=== PATIENT | female | born 1945 | race Caucasian/White ===

== ENCOUNTER 2021-01-11 15:21 | Inpatient (IN) | payer MEDICARE, SELFPAY ==
[2021-01-11] VITALS (13 sets, daily range): BP systolic 107–127; BP diastolic 76–89; PULSE 50–101; RESP 14–26; TEMP 36–36.2; O2SAT 93–97; BMI 22.6
--- NOTE | ~2021-01-11 | US_ITS ---
EXAMINATION: US paracentesis abd w/image DATE: 01/14/2021 10:58 INDICATION: Ascites. TECHNIQUE: The procedure and its risks and benefits were discussed with the patient. Potential risks discussed included bleeding and infection. The skin was prepped and draped in sterile fashion. 1% lid ocaine was used for local anesthesia. Under ultrasound guidance, a 5 Fr catheter with trochar was adv anced into the ascites in the right lower quadrant. Fluid was aspirated into vacuum bottles. The cath eter was removed, and a dressing was applied. There were no immediate complications. FINDINGS: Ultrasound images demonstrate ascites and the catheter within the fluid. IMPRESSION: 1. Successful ultrasound-guided paracentesis yielding 850 mL of yellowish fluid. Reviewed, dictated and finalized at location A. IMPRESSION: 1. Successful ultrasound-guided paracentesis yielding 850 mL of yellowish flui d.
--- NOTE | ~2021-01-11 | CT_ITS ---
EXAMINATION: CT abdomen pelvis wo con DATE: 01/12/2021 09:18 INDICATION: Abdominal pain and ascites TECHNIQUE: Computed tomography (CT) of the abdomen and pelvis was performed without intravenous contr ast. Automated exposure control and iterative reconstruction technique were employed. The dose-length product was 321.06 mGy-cm. COMPARISON: 12/14/2015. FINDINGS: Mild dependent atelectasis in the bilateral lower lobes. Heart size is normal. Atherosclerotic ocasio ry artery calcific location. Fusiform ascending thoracic aortic aneurysm measuring up to 4.6 cm in ma ximal diameter. No pericardial or pleural effusion. Postoperative change of prior sleeve gastrectomy with suture line along the greater curvature of the stomach. Small sliding-type hiatal hernia. Fluid potentially due to reflux in the patulous distal esophagus. Cholecystectomy clips at the gallbladder fossa. Nodular cirrhotic liver. Spleen, pancreas, bilateral adrenal glands and kidneys are normal. Moderate amount of ascites throughout the abdomen and pelvis. No bowel obstruction. Moderate sigmoid diverticulosis without adjacent inflammatory change to suggest diverticulitis. The appendix is not visualized. Bladder is normal. The uterus is not identified and has likely been surgically resected. No pathologically enlarged abdominal or pelvic lymphadenopathy. Mild thoracolumbar dextroscoliosis with severe spondylosis. 4 mm anterolisthesis L5 on S1. IMPRESSION: 1. Cirrhosis with moderate amount of ascites. 2. 4.6 cm ascending thoracic aortic aneurysm. 3. Small sliding-type hiatal hernia with changes likely partial gastrectomy and fluid potentially rel ated to reflux into the patulous distal esophagus. 4. Sigmoid diverticulosis. Reviewed, dictated and finalized at location A. IMPRESSION: 1. Cirrhosis with moderate amount of ascites. 2. 4.6 cm ascending thoracic aortic aneurysm. 3. Small sliding-type hiatal hernia with changes likely partial gastrectomy and fluid potentially related to reflux into the patulous distal esophagus. 4. Sigmoid diverticulosis.
--- NOTE | ~2021-01-11 | XR_ITS ---
EXAMINATION: XR chest 1V INDICATION: Weakness and shortness of breath TECHNIQUE: PA view of the chest is obtained. COMPARISON: 11/17/2018 FINDINGS: The lungs are free of acute opacities. There is no pleural effusion or pneumothorax. The he art size is normal. The thoracic aorta is ectatic. Surgical clips in the right upper quadrant are lik matilde from prior cholecystectomy. IMPRESSION: 1. No acute cardiopulmonary abnormality. Reviewed, dictated and finalized at location B.
--- NOTE | 2021-01-11 15:53 | ECG_ITS ---
Measurements Intervals [place] Rate: 90 P: 13 ND: 140 QRS: -38 QRSD: 88 T: -2 QT: 359 QTc: 440 Interpretive Statements SINUS RHYTHM LEFT AXIS DEVIATION POOR R WAVE PROGRESSION, ANTERIOR LEADS BORDERLINE T WAVE ABNORMALITY- ANT/INF LEADS BASELINE ARTIFACT- I, III, AVR, AVL, AVF BORDERLINE ECG Electronically Signed On 01-11-2021 16:13:25 CDT by Twan Sparks D.O.
[2021-01-11 16:20] LABS: Basophils Absolute Auto 0.1 K/mm3 (0.0-0.1); Eosinophils Percent Auto 0.2 % (0-4.4); Immature Granulocyte Absolute 0.03 K/mm3 (0.00-0.031); Immature Granulocyte Percent A 0.5 % (0-0.5); Lymphocytes Absolute Auto 0.68 K/mm3 (0.9-3.2); Lymphocytes Percent Auto 11.6 % (18.3-44.2); Mean Corpuscular HGB Conc 32.6 g/dl (32-36); Mean Corpuscular Hemoglobin 33.3 pg (26-34); Mean Corpuscular Volume 102.4 fl (80-100); Mean Platelet Volume 10.5 fl (7.4-10.4); Monocytes Absolute Auto 0.4 K/mm3 (0.1-0.6); Monocytes Percent Auto 7.4 % (2.6-8.5); Neutrophils Absolute Auto 4.6 K/mm3 (1.3-6.7); Neutrophils Percent Auto 79.3 % (45.5-73.1); Platelet Count Result 239 k/mm3 (150-375); Red Cell Distribution Width 14.2 % (11.5-14.5); White Blood Count 5.9 K/mm3 (4.5-10.0)
[2021-01-11 16:27] LABS: Ammonia < 9 umol/L (9-30)
[2021-01-11 16:35] LABS: Alanine Aminotransferase 30 U/L (4-35); Albumin Level 3.7 g/dL (3.5-5.1); Alkaline Phosphatase 312 U/L (38-126); Anion Gap 10 mmol/L (8-16); Aspartate Amino Transferase 86 U/L (14-36); Bilirubin,Total 2.6 mg/dL (0.2-1.3); Blood Urea Nitrogen 7 mg/dL (7-17); Calcium 8.9 mg/dL (8.4-10.2); Carbon Dioxide 32 mmol/L (22-30); Chloride 92 mmol/L (98-107); Estimated CRCL calculation 39 ml/min; Estimated Glomerular Filt Rate > 60; Glucose 107 mg/dL (65-110); Lipase 174 U/L (23-300); Potassium 2.8 mmol/L (3.4-5.0); Sodium 134 mmol/L (137-145)
[2021-01-11 18:18] LABS: Add Urine Microscopic? YES; Appearance Urine Clear (Clear); Bilirubin Urine Negative (Negative); Blood Urine Negative (Negative); Color Urine Amber (Yellow); Glucose Urine UA Negative (Negative); Ketones Urine Negative (Negative); Leukocyte Esterase Ur 2+ LEU/UL (Negative); Mucus Urine Rare /lpf; Nitrate Urine Negative (Negative); Protein Urine Negative (Negative); RBC Urine 0-2 /hpf (0-2); Specific Grav Ur 1.011 (1.001-1.035); WBC Urine 0-3 /hpf
--- NOTE | 2021-01-11 18:28 | ED.WEAKNESS ---
HPI - Weakness General Chief complaint: Weakness Stated complaint: liver failure Time Seen by Provider: 01/11/21 18:00 History of Present Illness HPI Narrative: Patient presents with generalized weakness. Reports a history of end-stage liver failure. Reports difficult control ascites and approximately 2 weeks ago was started on Lasix to help with edema. She reports over that time. She has had increasing weakness and has lost approximately 14 pounds. She was concerned so she wanted to come in for evaluation. Reports generalized weakness reports loss of appetite denies vomiting denies diarrhea denies urinary symptoms she denies fevers. Patient reports chronic chest pain shortness of breath but is not noted any appreciable change in her baseline symptoms Related Data Home Medications Medication Instructions Recorded Confirmed Xifaxan 01/11/21 alclometasone applic TOPICAL 01/11/21 buprenorphine 01/11/21 buspirone mg 01/11/21 cyanocobalamin (vitamin B-12) 01/11/21 dapsone 01/11/21 dexamethasone 01/11/21 dorzolamide (PF) drp 01/11/21 duloxetine mg PO 01/11/21 ferrous sulfate [FeroSul] mg 01/11/21 fluticasone propionate 01/11/21 furosemide 01/11/21 ipratropium bromide 01/11/21 ipratropium bromide [Atrovent HFA] INHALATION 01/11/21 lactulose 01/11/21 lorazepam 01/11/21 montelukast mg 01/11/21 ondansetron 01/11/21 pantoprazole PO 01/11/21 01/11/21 prochlorperazine maleate 01/11/21 spironolactone 01/11/21 tenofovir alafenamide 01/11/21 thiamine HCl (vitamin B1) 01/11/21 tramadol mg 01/11/21 trazodone 01/11/21 Allergies Allergy/AdvReac Type Severity Reaction Status Date / Time adhesive Allergy Unknown Ulcers Verified 01/11/21 19:55 latex Allergy Unknown Ulcers Verified 01/11/21 19:55 Sulfa (Sulfonamide Allergy Unknown Rash Verified 01/11/21 19:55 Antibiotics) azathioprine AdvReac Other Verified 01/11/21 19:55 Review of Systems Review of Systems: CONSTITUTIONAL: Denies fever, chills, or sweats. EYES: Denies visual changes, redness, or discharge. ENT: Denies rhinorrhea, congestion, sore throat, or otalgia. CARDIOVASCULAR: Denies acute change in chest pain, palpitations, or edema. RESPIRATORY: Denies cough or acute change in dyspnea. GASTROINTESTINAL: Denies abdominal pain, vomiting, or diarrhea. GENITOURINARY: Denies dysuria or hematuria. SKIN: Denies rash or itching. MUSCULOSKELETAL: Denies back pain, joint pain, or myalgia. NEUROLOGIC: Denies headache, numbness, dizziness, or weakness. PSYCHIATRIC: Denies anxiety or depression. All systems reviewed & are unremarkable except as noted in HPI and below PMFSH Family History Family History Mother Family history of cardiovascular disease, Onset Age: 72 Social History Social History Smoking status: Never smoker Alcohol intake: never Gender identity (if verbalized by the patient): Female Exam Narrative: GENERAL: Well-appearing, well-nourished, and in no acute distress. HEAD: Normocephalic, atraumatic. EYES: PERRLA and EOMI. ENT: Nares clear, no rhinorrhea or epistaxis. Mucous membranes moist. NECK: Supple. No masses. No JVD CHEST: Clear to auscultation. No respiratory distress. No wheezes rales or rhonchi HEART: Regular rate and rhythm. No murmur heard. Normal peripheral pulses. ABDOMEN: Soft, nontender, mild distention, normal active bowel sounds. EXTREMITIES: Normal range of motion. Symmetric pitting edema the bilateral lower extremities 2+ SKIN: Warm, dry, no rash. NEURO: No focal deficits. Alert and oriented x3. PSYCH: Normal mood and affect. Course Reevaluation(s) Reevaluation #1: Patient denies any change in symptoms Date: 01/11/21 Time: 19:03 Vital Signs Vital signs: Vital Signs Temperature 36.2 C L 01/11/21 15:48 Pulse Rate 100 01/11/21 15:48 Respiratory Rate 17 01/11
--- NOTE | 2021-01-11 19:19 | PC.NURSE ---
report to jazmin sotelo, to continue care.
[2021-01-11] MEDS: ONDANSETRON INJ 4 MG/2 ML VIAL IV PUSH (19:35)
[2021-01-11 19:45] LABS: Magnesium 1.8 mg/dL (1.6-2.3)
[2021-01-11] MEDS: MORPHINE SULFATE (*CRX) 4 MG/ML INJ IV PUSH (19:56)
--- NOTE | 2021-01-11 21:50 | ADMGEN ---
This patient, Paula Lan, was admitted to Medical Room [facility] @[id number]. Patient/family oriented to hospital policies and general routines including ID bracelet, bed and alarms, visiting hours, pain management, procedures, bathroom and other care routines, personal items, smoking policy, room service/diet, and visiting hours. Information on how to activate the Rapid Response Team has been discussed. Patient/Family are encouraged to report perceived risks to care and to ask questions if they do not understand what they are told or what they should do.
--- NOTE | 2021-01-11 23:20 | PM.IMHP ---
H&P: HPI History of Present Illness Date/Time: 01/11/21 23:20 Chief Complaint: weakness Narrative: Patient presents with generalized weakness. 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 More recently she has not been able to eat or drink because of nausea and vomiting for past 3 months or so. She also had been started on Lasix due to edema and ascites for which she also used to take potassium supplement recently she was put on spironolactone and has potassium supplement was stopped. She denies any diarrhea she reports some discomfort in her abdomen with some of it is chronic. She reports she was given azathioprine in the past that caused the liver damage. She has been diagnosed with polyarteritis nodosa and systemic vasculitis. She is currently on prednisone for this. Review of Systems Review of Systems: - CONSTITUTIONAL: Reports weight loss, denies fever and chills. - HEENT: Denies changes in vision and hearing - RESPIRATORY: Denies SOB and cough. - CV: Denies palpitations and CP. - GI: reportsabdominal pain, nausea, vomiting and deniesdiarrhea. - : Denies dysuria and urinary frequency. - MSK: Denies myalgia and joint pain. - SKIN: Denies rash and pruritus. - NEUROLOGICAL: Denies headache and syncope. - PSYCHIATRIC: Denies recent changes in mood. Denies anxiety and depression. All systems reviewed & are unremarkable except as noted in HPI and below Constitutional: Constitutional: Reports fatigue and Reports weakness Neurologic: Reports weakness Endocrine: Endocrine: Reports fatigue [facility] Family History Family History (Updated 01/11/21 @ 22:09 by Tammy Roque RN) Mother Family history of cardiovascular disease, Onset Age: 72 Cerebrovascular accident Father Cerebrovascular accident Social History Social History Smoking status: Never smoker Alcohol intake: never Substance use: current Substance use type: marijuana Gender identity (if verbalized by the patient): Female Spiritual care concerns: No Meds Home Medications and Allergies Home Medications Medication Instructions Recorded Confirmed Type Xifaxan 40 mg PO BID 01/11/21 01/11/21 History acetaminophen 650 mg PO Q4H PRN 01/11/21 01/11/21 History alclometasone applic TOPICAL 01/11/21 History aspirin 81 mg PO DAILY 01/11/21 01/11/21 History buprenorphine 7.5 mcg TRANSDERMAL WEEKLY 01/11/21 01/11/21 History buspirone 15 mg PO TID 01/11/21 01/11/21 History cyanocobalamin (vitamin B-12) 1,000 mcg IM MONTHLY 01/11/21 01/11/21 History dapsone 100 mg PO DAILY 01/11/21 01/11/21 History dexamethasone 01/11/21 History dorzolamide (PF) 1 drp EACH EYE BID 01/11/21 01/11/21 History duloxetine 60 mg PO BID 01/11/21 01/11/21 History ergocalciferol (vitamin D2) 50,000 unit PO MONTHLY 01/11/21 01/11/21 History ferrous sulfate [FeroSul] 325 mg PO DAILY 01/11/21 01/11/21 History fluticasone propionate 50 mcg INTRANASAL DAILY PRN 01/11/21 01/11/21 History furosemide 20 mg PO DAILY 01/11/21 01/11/21 History ipratropium bromide 2 puff INHALATION Q6H PRN 01/11/21 01/11/21 History lactulose 30 ml PO TID 01/11/21 01/11/21 History lorazepam 0.5 mg PO BID PRN 01/11/21 01/11/21 History montelukast 10 mg PO HS 01/11/21 01/11/21 History multivitamin [Daily Multivitamin] 1 tablet PO DAILY 01/11/21 01/11/21 History multivitamin with minerals [Daily 1 tablet PO DAILY 01/11/21 01/11/21 History Multivitamin-Minerals] ondansetron 4 mg PO Q8H PRN 01/11/21 01/11/21 History pantoprazole 40 mg PO BID 01/11/21 01/11/21 History prednisolone acetate 1 drp LEFT EYE BID 01/11/21 01/11/21 History prednisone 2 mg PO DAILY 01/11/21 01/11/21 History prednisone 5 mg PO DAILY 01/11/21 01/11/21 History prochlorperazine maleate 5 mg PO Q6H PRN 01/11/21 01/11/21 History spironolactone 50 mg PO DAILY 01/11/21
[2021-01-12] MEDS: traMADol HCL (*CRX) 50 MG TABLET PO ×2 (02:02→21:14)
[2021-01-12] MEDS: LORazepam (*CRX) 0.5 MG TABLET PO ×2 (02:03→21:13)
[2021-01-12 05:44] VITALS: BP 128/80; PULSE 79; RESP 16; TEMP 36.1; O2SAT 93
[2021-01-12 05:46] LABS: Basophils Absolute Auto 0.1 K/mm3 (0.0-0.1); Basophils Percent Auto 0.9 % (0.2-1.2); Eosinophils Absolute Auto 0.1 K/mm3 (0-0.3); Eosinophils Percent Auto 1.2 % (0-4.4); Hematocrit 35.2 % (37.0-47.0); Hemoglobin 11.2 g/dL (12.0-15.0); Immature Granulocyte Absolute 0.02 K/mm3 (0.00-0.031); Immature Granulocyte Percent A 0.3 % (0-0.5); Lymphocytes Absolute Auto 2.28 K/mm3 (0.9-3.2); Lymphocytes Percent Auto 34.3 % (18.3-44.2); Mean Corpuscular HGB Conc 31.8 g/dl (32-36); Mean Corpuscular Hemoglobin 32.7 pg (26-34); Mean Corpuscular Volume 102.9 fl (80-100); Mean Platelet Volume 10.8 fl (7.4-10.4); Monocytes Absolute Auto 0.9 K/mm3 (0.1-0.6); Monocytes Percent Auto 13.7 % (2.6-8.5); Neutrophils Absolute Auto 3.3 K/mm3 (1.3-6.7); Neutrophils Percent Auto 49.6 % (45.5-73.1); Platelet Count Result 147 k/mm3 (150-375); Red Blood Count 3.42 M/mm3 (4.2-5.4); Red Cell Distribution Width 13.9 % (11.5-14.5); White Blood Count 6.6 K/mm3 (4.5-10.0)
[2021-01-12 06:33] LABS: Alanine Aminotransferase 23 U/L (4-35); Albumin Level 2.8 g/dL (3.5-5.1); Alkaline Phosphatase 245 U/L (38-126); Anion Gap 2 mmol/L (8-16); Aspartate Amino Transferase 60 U/L (14-36); Bilirubin,Total 1.6 mg/dL (0.2-1.3); Blood Urea Nitrogen 7 mg/dL (7-17); Calcium 8.2 mg/dL (8.4-10.2); Carbon Dioxide 35 mmol/L (22-30); Chloride 96 mmol/L (98-107); Estimated CRCL calculation 39 ml/min; Estimated Glomerular Filt Rate > 60; Glucose 83 mg/dL (65-110); Magnesium 1.9 mg/dL (1.6-2.3); Potassium 3.2 mmol/L (3.4-5.0); Sodium 133 mmol/L (137-145)
[2021-01-12] MEDS: diphenhydrAMINE HCl CAP 25 MG CAPSULE PO ×2 (06:52→12:47)
[2021-01-12] MEDS: MORPHINE SULFATE (*CRX) 4 MG/ML INJ IV PUSH ×2 (10:05→23:11)
[2021-01-12] MEDS: DORZOLAMIDE HCL 2% OPHTH DROPS 1 DROP EACH EYE ×2 (10:10→21:13)
[2021-01-12] MEDS: prednisoLONE ACETATE 1% OPHTH 5 ML 1 DROP LEFT EYE ×2 (10:11→21:13)
--- NOTE | 2021-01-12 12:47 | PC.NURSE ---
pt refusing PO meds at this time, just finished meal and would like to let that settle out of fear getting nauseous, will continue to monitor
--- NOTE | 2021-01-12 13:56 | WPDGICN ---
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 AIH component (3) Acute hypokalemia: Code(s): E87.6 - Hypokalemia Status: Acute Assessment and Plan: treated now, encourage to eat, ok to have protein shakes (4) Fatigue: Qualifiers: Fatigue type: unspecified Qualified Code(s): R53.83 - Other fatigue Code(s): R53.83 - Other fatigue Status: Acute (5) Nausea & vomiting: Code(s): R11.2 - Nausea with vomiting, unspecified Status: Acute Assessment and Plan: medical therapy (6) Elevated liver enzymes: Code(s): R74.8 - Abnormal levels of other serum enzymes Status: Acute Assessment and Plan: will get labs tomorrow and calculate meld (normal renal function and only mild elevated bili) (7) Polyarteritis nodosa: Code(s): M30.0 - Polyarteritis nodosa Status: Acute Assessment and Plan: at home she is on low dose of prednisone but do not have previous records (8) Liver encephalopathy: Code(s): K72.90 - Hepatic failure, unspecified without coma Status: Acute Assessment and Plan: continue with lactulose and xifaxan GI Consult Note Consult date/time: 01/12/21 13:56 Reason for consult: cirrhosis, chronic hepatitis B HPI: Paula Lan is a 75 year old female with history of chronic hepatitis B, 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 She says that diagnosed with hepatitis when she was 8 yo (she wonders if source of infection was dental work) but not until several years ago found to have HBV with cirrhosis, she is currently on tenofovir alafenamide. Apparently also at some point she received imuran and now on low dose steroid- ? AIH (noted that she has vasculitis - ? [facility]) but do not have records. She never had paracentesis but on diuretics at home, also history of fogginess for which she is taking lactulose and xifaxan. She remembers having egd/colonoscopy about 2 years ago at [facility]. She is here with 2 weeks of poor appetite and also fogginess . On admission had hypokalemia which is treated now, also abnormal gait. No abdominal pain or diarrhea. bili 2, ast 80, alt 30, creat 0.9 Review of Systems Constitutional: Constitutional: Reports lethargy Eyes: Eyes: Reports no additional eye complaints ENT: Reports system reviewed and no additional complaints, except as documented Cardiovascular: Cardiovascular: Denies chest pain Respiratory: Respiratory: Denies dyspnea Gastrointestinal: Gastrointestinal: Reports nausea Genitourinary: Genitourinary: Denies hematuria Musculoskeletal: Musculoskeletal: Denies neck pain Integumentary/Breasts: Skin/Breast: Denies dry skin Neurologic: Reports abnormal gait Psychiatric: Psychiatric: Reports anxiety PMFSH Past Medical History Medical History (Updated 01/12/21 @ 14:06 by Shaggy Phillips MD) Chronic hepatitis B Liver encephalopathy Family History Family History (Updated 01/11/21 @ 22:09 by Tammy Roque RN) Mother Family history of cardiovascular disease, Onset Age: 72 Cerebrovascular accident Father Cerebrovascular accident Social History Social History Smoking status: Never smoker Alcohol intake: never Substance use: current Substance use type: marijuana Gender identity (if verbalized by the
[2021-01-12] MEDS: DAPSONE 25 MG TABLET 100 MG PO (14:52)
[2021-01-12] MEDS: THIAMINE HCL 100 MG TABLET PO (14:53)
[2021-01-12] MEDS: busPIRone HCL 5 MG TABLET 15 MG PO ×2 (14:53→17:35)
[2021-01-12] MEDS: FUROSEMIDE 20 MG TABLET PO (14:53)
[2021-01-12] MEDS: LACTULOSE 20 GM/30 ML UDC PO (14:54)
[2021-01-12] MEDS: PANTOPRAZOLE 40 MG TABLET PO ×2 (14:54→17:35)
[2021-01-12] MEDS: predniSONE 1 MG TABLET 2 MG PO (14:54)
[2021-01-12] MEDS: ASPIRIN 81 MG CHEWABLE TABLET PO (14:54)
[2021-01-12] MEDS: SPIRONOLACTONE 50 MG TABLET PO (14:55)
[2021-01-12] MEDS: FERROUS SULFATE 324 MG TABLET PO (14:55)
[2021-01-12] MEDS: predniSONE 5 MG TABLET PO (14:55)
[2021-01-12] MEDS: THERAPEUTIC MULTIVITAMINS/MINERALS TAB (*BKC) 1 TABLET PO (14:55)
[2021-01-12] MEDS: DULoxetine HCL 60 MG CAPSULE.DR PO ×2 (14:55→17:35)
--- NOTE | 2021-01-12 15:05 | PM.IMPN ---
Progress Note: A&P Assessment and Plan (1) Acute hypokalemia: Code(s): E87.6 - Hypokalemia Status: Acute Assessment and Plan: 2.8 on admission, 3.2 today Will give 40 meq of KCL po Mg 1.8 Monitor (2) Fatigue: Qualifiers: Fatigue type: unspecified Qualified Code(s): R53.83 - Other fatigue Code(s): R53.83 - Other fatigue Status: Acute Assessment and Plan: PT/OT to eval and treat (3) Cirrhosis of liver: Code(s): K74.60 - Unspecified cirrhosis of liver Status: Acute Assessment and Plan: Resume home meds GI consulted (4) Autoimmune liver disease: Code(s): K76.89 - Other specified diseases of liver Status: Acute Assessment and Plan: Resume home meds No recent workup GI consulted (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 Status: Acute (6) Polyarteritis nodosa: Code(s): M30.0 - Polyarteritis nodosa Status: Acute (7) Chronic back pain: Code(s): M54.9 - Dorsalgia, unspecified; G89.29 - Other chronic pain Status: Acute Assessment and Plan: Resume home meds (8) Abdominal pain: Code(s): R10.9 - Unspecified abdominal pain Status: Acute Assessment and Plan: CT of A/P GI consulted (9) Elevated liver enzymes: Code(s): R74.8 - Abnormal levels of other serum enzymes Status: Acute Assessment and Plan: Baseline no Follow daily GI consulted (10) Nausea & vomiting: Code(s): R11.2 - Nausea with vomiting, unspecified Status: Acute Assessment and Plan: Denies any N/V this a.m. CT of A/P today GI consulted, will await recommendations Additional Plan # History of central retinal artery occlusion in the past # Giant cell arteritis # Polyarteritis nodosa # Anxiety depression # Chronic back pain # DVT prophylaxis Lovenox # Full code status Subjective Date/time seen: 01/12/21 15:05 Interval history: pt seen and evaluated; denies any N/V; no acute events overnight Review of Systems Review of Systems: All systems reviewed & are unremarkable except as noted in HPI and below Exam Const: General: no acute distress, alert and awake Orientation/consciousness: patient oriented x3 HENMT: Head: normocephalic and atraumatic Ears: hearing grossly normal bilaterally and external ears normal Face and sinus: face symmetric Mouth: Yes Normal oral and palatal mucosa present Eyes: Pupils: Equal, round and reactive pupils present EOM: EOMs intact bilaterally Neck: Neck: full ROM, trachea midline and no JVD Thyroid: thyroid normal Chest: Chest palpation & inspection: normal inspection of the chest Resp: Effort & Inspection: normal respiratory effort Auscultation: clear to auscultation bilaterally Cardio: Jugular venous distension: no JVD Rate: regular rate Rhythm: regular rhythm Heart sounds: S1 normal heart sound present and S2 normal heart sound present GI: Inspection: normal to inspection GI Palp: Yes Soft to palpation Percussion: Yes normal to percussion Auscultation: normal bowel sounds : General: Yes no CVA tenderness Back/Spine/Pelvis: Back: no CVA tenderness Skin: General skin exam: normal color Rashes: no rashes Neuro: General: patient oriented x3 and CN's II-XI intact bilaterally Cranial nerves: Yes Equal, round and reactive pupils present Speech: normal speech Psych: Appearance: grossly normal Affect: normal affect Judgement: Good judgement present (Psych) Objective Data Vital Signs Vital Signs: Vital Signs - 24 hr 01/11/21 15:48 01/11/21 18:02 01/11/21 18:15 Temperature 36.2 C L Pulse Rate 100 93 101 H Respiratory Rate 17 16 20 Blood Pressure 127/89 Pulse Oximetry 93 95 94 01/11/21 18:23 01/11/21 18:27 01/11/21 18:30 Temperature Pulse Rate 94 97 100 Respiratory Rate 20 26 H Blood Pressure 107/84 Pulse Oximetry 94 95 0
[2021-01-12 16:00] VITALS: BP 96/66; PULSE 75; RESP 12; TEMP 36.3; O2SAT 96
[2021-01-12] MEDS: MONTELUKAST SODIUM 10 MG TABLET PO (21:13)
[2021-01-12] MEDS: rifAXIMin 550 MG TABLET PO (21:13)
[2021-01-12] MEDS: traZODone HCL 50 MG TABLET 100 MG PO (21:13)
[2021-01-12 22:07] VITALS: BP 108/66; PULSE 78; RESP 16; TEMP 36; O2SAT 96
[2021-01-13 05:53] LABS: INR 1.1
[2021-01-13 06:04] LABS: Alanine Aminotransferase 23 U/L (4-35); Albumin Level 2.8 g/dL (3.5-5.1); Alkaline Phosphatase 257 U/L (38-126); Anion Gap 5 mmol/L (8-16); Aspartate Amino Transferase 62 U/L (14-36); Bilirubin,Total 1.7 mg/dL (0.2-1.3); Blood Urea Nitrogen 7 mg/dL (7-17); Calcium 8.4 mg/dL (8.4-10.2); Carbon Dioxide 34 mmol/L (22-30); Chloride 96 mmol/L (98-107); Estimated CRCL calculation 49 ml/min; Estimated Glomerular Filt Rate > 60; Glucose 82 mg/dL (65-110); Potassium 3.7 mmol/L (3.4-5.0); Sodium 135 mmol/L (137-145)
[2021-01-13 06:40] LABS: Hepatitis B Surface Antigen Positive (Negative)
[2021-01-13] MEDS: DAPSONE 25 MG TABLET 100 MG PO (08:52)
[2021-01-13] MEDS: SPIRONOLACTONE 50 MG TABLET PO (08:53)
[2021-01-13] MEDS: rifAXIMin 550 MG TABLET PO ×2 (08:53→20:05)
[2021-01-13] MEDS: PANTOPRAZOLE 40 MG TABLET PO ×2 (08:53→18:11)
[2021-01-13] MEDS: FERROUS SULFATE 324 MG TABLET PO (08:53)
[2021-01-13] MEDS: predniSONE 1 MG TABLET 2 MG PO (08:54)
[2021-01-13] MEDS: PROCHLORPERAZINE MALEATE 5 MG TABLET PO ×2 (08:54→18:05)
[2021-01-13] MEDS: THERAPEUTIC MULTIVITAMINS/MINERALS TAB (*BKC) 1 TABLET PO (08:54)
[2021-01-13] MEDS: predniSONE 5 MG TABLET PO (08:55)
[2021-01-13] MEDS: FUROSEMIDE 20 MG TABLET PO (08:55)
[2021-01-13] MEDS: THIAMINE HCL 100 MG TABLET PO (08:55)
[2021-01-13] MEDS: ASPIRIN 81 MG CHEWABLE TABLET PO (08:55)
[2021-01-13] MEDS: DULoxetine HCL 60 MG CAPSULE.DR PO ×2 (08:56→18:09)
[2021-01-13] MEDS: busPIRone HCL 5 MG TABLET 15 MG PO ×3 (08:56→18:06)
[2021-01-13] MEDS: FLUTICASONE PROPIONATE 0.05% NA SPR 16 GM BTL (*BKC) 1 SPRAY NASAL (08:57)
[2021-01-13] MEDS: DORZOLAMIDE HCL 2% OPHTH DROPS 1 DROP EACH EYE ×2 (08:57→18:09)
[2021-01-13] MEDS: prednisoLONE ACETATE 1% OPHTH 5 ML 1 DROP LEFT EYE ×2 (08:57→18:10)
--- NOTE | 2021-01-13 10:18 | PM.IMPN ---
Progress Note: A&P Assessment and Plan (1) Acute hypokalemia: Code(s): E87.6 - Hypokalemia Status: Acute Assessment and Plan: 2.8 on admission, 3.2-->3.7 today S/p 40 meq of KCL po Mg 1.9 on 01/12 Monitor (2) Fatigue: Qualifiers: Fatigue type: unspecified Qualified Code(s): R53.83 - Other fatigue Code(s): R53.83 - Other fatigue Status: Acute Assessment and Plan: PT/OT (3) Cirrhosis of liver: Code(s): K74.60 - Unspecified cirrhosis of liver Status: Acute Assessment and Plan: Resume home meds GI following, recommendations appreciated MELD score 10 (4) Autoimmune liver disease: Code(s): K76.89 - Other specified diseases of liver Status: Acute Assessment and Plan: Resume home meds No recent workup GI consulted (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 Status: Acute (6) Polyarteritis nodosa: Code(s): M30.0 - Polyarteritis nodosa Status: Acute (7) Chronic back pain: Code(s): M54.9 - Dorsalgia, unspecified; G89.29 - Other chronic pain Status: Acute Assessment and Plan: Resume home meds (8) Abdominal pain: Code(s): R10.9 - Unspecified abdominal pain Status: Acute Assessment and Plan: CT of A/P noted GI following, recommendations (9) Elevated liver enzymes: Code(s): R74.8 - Abnormal levels of other serum enzymes Status: Acute Assessment and Plan: Improving Baseline unknown GI following Monitor (10) Nausea & vomiting: Code(s): R11.2 - Nausea with vomiting, unspecified Status: Acute Assessment and Plan: Denies any N/V this a.m. CT of A/P noted GI following, recommendations appreciated EGD planned for tomorrow (11) Ascites: Code(s): R18.8 - Other ascites Status: Acute Assessment and Plan: GI following, recommendations appreciated Plan for paracentesis with IR Additional Plan # History of central retinal artery occlusion in the past # Giant cell arteritis # Polyarteritis nodosa # Anxiety depression # Chronic back pain # DVT prophylaxis Lovenox # Full code status Subjective Date/time seen: 01/13/21 10:18 Interval history: pt seen and evaluated; denies any N/V; no acute events overnight; pt states she feel a lot better than on admisison Review of Systems Review of Systems: All systems reviewed & are unremarkable except as noted in HPI and below Exam Const: General: no acute distress, alert and awake Orientation/consciousness: patient oriented x3 HENMT: Head: normocephalic and atraumatic Ears: hearing grossly normal bilaterally and external ears normal Face and sinus: face symmetric Mouth: Yes Normal oral and palatal mucosa present Eyes: Pupils: Equal, round and reactive pupils present EOM: EOMs intact bilaterally Neck: Neck: full ROM, trachea midline and no JVD Thyroid: thyroid normal Chest: Chest palpation & inspection: normal inspection of the chest Resp: Effort & Inspection: normal respiratory effort Auscultation: clear to auscultation bilaterally Cardio: Jugular venous distension: no JVD Rate: regular rate Rhythm: regular rhythm Heart sounds: S1 normal heart sound present and S2 normal heart sound present GI: Inspection: normal to inspection Auscultation: normal bowel sounds : General: Yes no CVA tenderness Back/Spine/Pelvis: Back: no CVA tenderness Skin: General skin exam: normal color Rashes: no rashes Neuro: General: patient oriented x3 and CN's II-XI intact bilaterally Cranial nerves: Yes Equal, round and reactive pupils present Speech: normal speech Psych: Appearance: grossly normal Affect: normal affect Judgement: Good judgement present (Psych) Objective Data Vital Signs Vital Signs: Vital Signs - 24 hr 01/12/21 16:00 01/12/21 22:07 Temperature 36.3 C L 36.0 C L Pulse Rate 75 78 Re
--- NOTE | 2021-01-13 10:22 | WPDGIPROGNO ---
Progress Note: A&P Assessment and Plan (1) Nausea & vomiting: Code(s): R11.2 - Nausea with vomiting, unspecified Status: Acute Assessment and Plan: better now and eating more, she says that due to have another EGD, will do one tomorrow (h/o gastric sleeve, also cirrhosis, assess if varices, PUD, etc) CT scan reviewed- Cirrhosis with moderate amount of ascites, 4.6 cm ascending thoracic aortic aneurysm, small sliding-type hiatal hernia with changes likely partial gastrectomy and fluid potentially related to reflux into the patulous distal esophagus. 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 [facility] MELD score 10 (3) Chronic hepatitis B: Code(s): B18.1 - Chronic viral hepatitis B without delta-agent Status: Acute (4) Ascites: Code(s): R18.8 - Other ascites Status: Acute Assessment and Plan: she never had paracentesis and always treated with diuretics in fact says that less bloated but CT scan yesterday showed moderate amount will ask IR to try paracentesis and will get fluid analysis (5) Liver encephalopathy: Code(s): K72.90 - Hepatic failure, unspecified without coma Status: Acute Assessment and Plan: better, continue with lactulose and xifaxan (6) Elevated liver enzymes: Code(s): R74.8 - Abnormal levels of other serum enzymes Status: Acute (7) 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 She told me that etiology of cirrhosis is chronic HBV, also had other rheumatological conditions (LARA, GCA, etc for which is using low dose of prednisone) and seeing disposition clerk at [facility]. She is feeling better today. Also had gastric sleeve years ago and last EGD 2 years ago, she is supposed to have another one again. Review of Systems Review of Systems: All systems reviewed & are unremarkable except as noted in HPI and below Exam Const: General: comfortable and no acute distress HENMT: General nose exam: Normal nares present Eyes: Sclera: sclerae normal Neck: Neck: supple Resp: Auscultation: clear to auscultation bilaterally Cardio: Rate: regular rate GI: Inspection: non-distended GI Palp: Yes Soft to palpation, No Tenderness to palpation present (GI) and No Guarding due to palpation present (GI) Auscultation: normal bowel sounds Skin: General skin exam: no rashes or lesions noted Neuro: Speech: normal speech Motor exam (neuro): Normal motor muscle tone present throughout Extrem: General: normal to inspection Psych: Affect: normal affect Objective Data Vital Signs Vital Signs: Vital Signs - 24 hr 01/12/21 16:00 01/12/21 22:07 Temperature 97.4 F L 96.8 F L Pulse Rate 75 78 Respiratory Rate 12 16 Blood Pressure 96/66 L 108/66 Pulse Oximetry 96 96 Intake/Output Intake/Output: Intake & Output 01/10/21 01/11/21 01/12/21 01/13/21 23:59 23:59 23:59 23:59 Intake Total 2009 290 Balance 2009 290 Meds/Results Medications: Active Medications Generic Name Dose Route Start Last Admin Trade Name Freq PRN Reason Stop Dose Admin Acetaminophen 650 mg 01/11/21 00:55 Acetaminophen 325 Mg Tablet PO Q4H PRN Pain Rated 1-3 Aspirin 81 mg 01/12/21 08:00 01/13/21 08:55 Aspirin 81 Mg Chewable Tablet PO 81 mg DAILY@0800 [facility] Administr
[2021-01-13 14:00] VITALS: BP 102/60; PULSE 89; RESP 16; TEMP 36.6; O2SAT 90
[2021-01-13] MEDS: traMADol HCL (*CRX) 50 MG TABLET PO ×2 (14:14→22:11)
[2021-01-13] MEDS: MORPHINE SULFATE (*CRX) 4 MG/ML INJ IV PUSH (19:58)
[2021-01-13] MEDS: MONTELUKAST SODIUM 10 MG TABLET PO (20:05)
[2021-01-13 22:00] VITALS: BP 133/82; PULSE 77; RESP 16; TEMP 36.4; O2SAT 97
[2021-01-13] MEDS: traZODone HCL 50 MG TABLET 100 MG PO (22:11)
[2021-01-13] MEDS: LORazepam (*CRX) 0.5 MG TABLET PO (23:16)
[2021-01-14] VITALS (7 sets, daily range): BP systolic 105–112; BP diastolic 22–75; PULSE 79–95; RESP 14–18; TEMP 36.1–36.4; O2SAT 94–96
[2021-01-14 06:15] LABS: Alanine Aminotransferase 19 U/L (4-35); Albumin Level 2.7 g/dL (3.5-5.1); Alkaline Phosphatase 267 U/L (38-126); Anion Gap 0 mmol/L (8-16); Aspartate Amino Transferase 49 U/L (14-36); Bilirubin,Total 1.5 mg/dL (0.2-1.3); Blood Urea Nitrogen 12 mg/dL (7-17); Calcium 8.4 mg/dL (8.4-10.2); Carbon Dioxide 34 mmol/L (22-30); Chloride 99 mmol/L (98-107); Estimated CRCL calculation 43 ml/min; Estimated Glomerular Filt Rate > 60; Glucose 81 mg/dL (65-110); Potassium 3.1 mmol/L (3.4-5.0); Sodium 133 mmol/L (137-145)
--- NOTE | 2021-01-14 07:56 | PM.IMPN ---
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 - Other specified diseases of liver Status: Acute Assessment and Plan: Resume home meds No recent workup GI consulted (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 Status: Acute Assessment and Plan: stable (6) Polyarteritis nodosa: Code(s): 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 - Polyarteritis nodosa Status: Acute Assessment and Plan: stable (7) Chronic back pain: Code(s): M54.9 - Dorsalgia, unspecified; G89.29 - Other chronic pain Status: Acute Assessment and Plan: Resume home meds (8) Abdominal pain: Code(s): R10.9 - Unspecified abdominal pain Status: Acute Assessment and Plan: CT of A/P noted GI following, recommendations (9) Elevated liver enzymes: Code(s): R74.8 - Abnormal levels of other serum enzymes Status: Acute Assessment and Plan: Improving Baseline unknown GI following Monitor (10) Nausea & vomiting: Code(s): R11.2 - Nausea with vomiting, unspecified Status: Acute Assessment and Plan: Denies any N/V this a.m. CT of A/P noted GI following, recommendations appreciated EGD planned this afternoon (11) Ascites: Code(s): R18.8 - Other ascites Status: Acute Assessment and Plan: GI following, recommendations appreciated Plan for paracentesis with IR Additional Plan # History of central retinal artery occlusion in the past # Giant cell arteritis # Polyarteritis nodosa # Anxiety depression # Chronic back pain # DVT prophylaxis Lovenox # Full code status Subjective Date/time seen: 01/14/21 07:56 Interval history: pt seen and evaluated; denies any N/V; no acute events overnight; no new complaints Review of Systems Review of Systems: All systems reviewed & are unremarkable except as noted in HPI and below Exam Const: General: no acute distress, alert and awake Orientation/consciousness: patient oriented x3 HENMT: Head: normocephalic and atraumatic Ears: hearing grossly normal bilaterally and external ears normal Face and sinus: face symmetric Mouth: Yes Normal oral and palatal mucosa present Eyes: Pupils: Equal, round and reactive pupils present EOM: EOMs intact bilaterally Neck: Neck: full ROM, trachea midline and no JVD Thyroid: thyroid normal Chest: Chest palpation & inspection: normal inspection of the chest Resp: Effort & Inspection: normal respiratory effort Auscultation: clear to auscultation bilaterally Cardio: Jugular venous distension: no JVD Rate: regular rate Rhythm: regular rhythm Heart sounds: S1 normal heart sound present and S2 normal heart sound present GI: Inspection: distended GI Palp: No abdominal tenderness and No Guarding due to palpation present (GI) Auscultation: normal bowel sounds : General: Yes no CVA tenderness Back/Spine/Pelvis: Back: no CVA tenderness Skin: General skin exam: normal color Rashes: no rashes Neuro: General: patient oriented x3 and CN's II-XI intact bilaterally Cranial nerves: Yes Equal, round and reactive pupils present Speech: normal speech Psych: Appearance: grossly normal Affect: normal affect Judgement: Good judgement present (Psych) Objective Data Vital Si
[2021-01-14] MEDS: FERROUS SULFATE 324 MG TABLET PO (08:03)
[2021-01-14] MEDS: predniSONE 1 MG TABLET 2 MG PO (08:03)
[2021-01-14] MEDS: predniSONE 5 MG TABLET PO (08:03)
[2021-01-14] MEDS: DORZOLAMIDE HCL 2% OPHTH DROPS 1 DROP EACH EYE ×2 (08:04→16:55)
[2021-01-14] MEDS: rifAXIMin 550 MG TABLET PO ×2 (08:04→21:35)
[2021-01-14] MEDS: THIAMINE HCL 100 MG TABLET PO (08:04)
[2021-01-14] MEDS: PANTOPRAZOLE 40 MG TABLET PO ×2 (08:05→16:55)
[2021-01-14] MEDS: THERAPEUTIC MULTIVITAMINS/MINERALS TAB (*BKC) 1 TABLET PO (08:05)
[2021-01-14] MEDS: prednisoLONE ACETATE 1% OPHTH 5 ML 1 DROP LEFT EYE ×2 (08:05→16:55)
[2021-01-14] MEDS: FUROSEMIDE 20 MG TABLET PO (08:05)
[2021-01-14] MEDS: busPIRone HCL 5 MG TABLET 15 MG PO ×2 (08:06→16:54)
[2021-01-14] MEDS: DAPSONE 25 MG TABLET 100 MG PO (08:06)
[2021-01-14] MEDS: SPIRONOLACTONE 50 MG TABLET PO (08:08)
[2021-01-14] MEDS: traMADol HCL (*CRX) 50 MG TABLET PO ×2 (11:14→21:35)
[2021-01-14 12:32] LABS: Appearance Peritoneal Fluid Clear (Clear); Color Peritoneal Fluid Yellow (Colorless); Macrophages Peritoneal Fluid 12 %; Mesothelial Cells Peritoneal Fluid 4 %; Neutrophils Peritoneal Fluid 1 % (0-25); Nucleated Cells Peritoneal Flu 1037 /uL (0-500); RBC Peritoneal Fluid 429 /uL (0-100000); Source Peritoneal Fluid Peritoneal Fluid
[2021-01-14 12:33] LABS: Lymphocytes Peritoneal Fluid 83 %
[2021-01-14] MEDS: LACTATED RINGERS 1,000 ML 150 ML IV CONT (13:40)
--- NOTE | 2021-01-14 13:41 | WPDANESEPPF ---
Anes - Initial Pre Proc Eval Procedure: Operation Date: 01/14/21 14:30 Proposed Procedures p Esophagogastroduodenoscopy - Kulwant Stevenson MD Date/Time: 01/14/21 13:41 Surgeon: Camryn Grimes DO Pre Op Diagnosis: hypokalemia Patient Data Age: 75 Gender: F Height: 1.57 m Weight: 56 kg Last Vital Signs Temp 36.1 C L 01/14/21 04:52 Pulse 79 01/14/21 04:52 Resp 16 01/14/21 04:52 BP 106/63 01/14/21 04:52 Pulse Ox 95 01/14/21 04:52 Allergies Allergy/AdvReac Type Severity Reaction Status Date / Time adhesive Allergy Unknown Ulcers Verified 01/14/21 13:41 latex Allergy Unknown Ulcers Verified 01/14/21 13:41 Sulfa (Sulfonamide Allergy Unknown Rash Verified 01/14/21 13:41 Antibiotics) azathioprine AdvReac Other Verified 01/14/21 13:41 Home Medications Medication Instructions Recorded Confirmed Type Xifaxan 40 mg PO BID 01/11/21 01/11/21 History acetaminophen 650 mg PO Q4H PRN 01/11/21 01/11/21 History alclometasone applic TOPICAL 01/11/21 History aspirin 81 mg PO DAILY 01/11/21 01/11/21 History buprenorphine 7.5 mcg TRANSDERMAL WEEKLY 01/11/21 01/11/21 History buspirone 15 mg PO TID 01/11/21 01/11/21 History cyanocobalamin (vitamin B-12) 1,000 mcg IM MONTHLY 01/11/21 01/11/21 History dapsone 100 mg PO DAILY 01/11/21 01/11/21 History dexamethasone 01/11/21 History dorzolamide (PF) 1 drp EACH EYE BID 01/11/21 01/11/21 History duloxetine 60 mg PO BID 01/11/21 01/11/21 History ergocalciferol (vitamin D2) 50,000 unit PO MONTHLY 01/11/21 01/11/21 History ferrous sulfate [FeroSul] 325 mg PO DAILY 01/11/21 01/11/21 History fluticasone propionate 50 mcg INTRANASAL DAILY PRN 01/11/21 01/11/21 History furosemide 20 mg PO DAILY 01/11/21 01/11/21 History ipratropium bromide 2 puff INHALATION Q6H PRN 01/11/21 01/11/21 History lactulose 30 ml PO TID 01/11/21 01/11/21 History lorazepam 0.5 mg PO BID PRN 01/11/21 01/11/21 History montelukast 10 mg PO HS 01/11/21 01/11/21 History multivitamin [Daily Multivitamin] 1 tablet PO DAILY 01/11/21 01/11/21 History multivitamin with minerals [Daily 1 tablet PO DAILY 01/11/21 01/11/21 History Multivitamin-Minerals] ondansetron 4 mg PO Q8H PRN 01/11/21 01/11/21 History pantoprazole 40 mg PO BID 01/11/21 01/11/21 History prednisolone acetate 1 drp LEFT EYE BID 01/11/21 01/11/21 History prednisone 2 mg PO DAILY 01/11/21 01/11/21 History prednisone 5 mg PO DAILY 01/11/21 01/11/21 History prochlorperazine maleate 5 mg PO Q6H PRN 01/11/21 01/11/21 History spironolactone 50 mg PO DAILY 01/11/21 01/11/21 History tenofovir alafenamide 25 mg PO DAILY 01/11/21 01/11/21 History thiamine HCl (vitamin B1) 100 mg PO DAILY 01/11/21 01/11/21 History tramadol 50 mg PO Q8H PRN 01/11/21 01/11/21 History trazodone 100 mg PO HS 01/11/21 01/11/21 History Laboratory Tests 01/14/21 01/14/21 01/14/21 05:34 10:27 10:27 Sodium 133 mmol/L L mmol/L (137-145) Potassium 3.1 mmol/L L mmol/L (3.4-5.0) Chloride 99 mmol/L mmol/L (98-107) Carbon Dioxide 34 mmol/L H mmol/L (22-30) Anion Gap 0 mmol/L L mmol/L (8-16) BUN 12 mg/dL D mg/dL (7-17) Creatinine 0.80 mg/dL mg/dL (0.7-1.0) Estim Creat Clear Calc 43 ml/min ml/min Estimated GFR > 60 (59 - ) Glucose 81 mg/dL mg/dL (65-110) Calcium 8.4 mg/dL mg/dL (8.4-10.2) Total Bilirubin 1.5 mg/dL H mg/dL (0.2-1.3) AST 49 U/L H U/L (14-36) ALT 19 U/L U/L (4-35) Alkaline Phosphatase 267 U/L H U/L (38-126) Total Protein 5.0 g/dL L g/dL (6.3-8.2) Albumin 2.7 g/dL L g/dL (3.5-5.1) Peritoneal Source Peritoneal fluid Peritoneal Color Yellow (Colorless) Peritoneal Appearance Clear (Clear) Peritoneal RBC 429 /uL /uL ([id number]) Periton Nuc Cells 1037 /uL H /uL (0-500) Periton Neutrophils 1 % %
--- NOTE | 2021-01-14 17:10 | PHAR ---
THE FOLLOWING HOME MEDS HAVE BEEN VERIFIED BY PHARMACY: BUPRENORPHINE 7.5 MCG/HR TRANSDERMAL PATCH VEMLIDY (TENOFIVIR) 25 MG TAB
[2021-01-14] MEDS: traZODone HCL 50 MG TABLET 100 MG PO (21:34)
[2021-01-14] MEDS: DULoxetine HCL 60 MG CAPSULE.DR PO (21:34)
[2021-01-14] MEDS: MONTELUKAST SODIUM 10 MG TABLET PO (21:36)
[2021-01-15 06:00] VITALS: BP 104/66; PULSE 74; RESP 16; TEMP 36.1; O2SAT 93
--- NOTE | 2021-01-15 07:08 | WPDGIPROGNO ---
Progress Note: A&P Assessment and Plan (1) Ascites: Code(s): R18.8 - Other ascites Status: Acute Assessment and Plan: the ascitic fluid that was drawn off by paracentesis is consistent with a transudate. Although she has some tenderness today. I doubt that she has infection or SBP . She is afebrile I will obtain a CBC. (2) Liver encephalopathy: Code(s): K72.90 - Hepatic failure, unspecified without coma Status: Acute Assessment and Plan: no signs of it. I lap with a. Negative for asterixis. At discharge I told her she will need to get back on her lactulose in addition to rifaximin (3) Cirrhosis of liver: Code(s): K74.60 - Unspecified cirrhosis of liver Status: Acute Assessment and Plan: oddly her LFTs are normal. 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 If CBC is normal I think she could be discharged and follow-up with her liver clinic Subjective Date/time seen: 01/15/21 07:08 She had no problems during the night. Tolerated her regular diet, Bengali food. Her only complaint is that she is tender at the site of her paracentesis. Admission she had abdominal pain which she states was near that area but more central and a little higher. Review of Systems Review of Systems: All systems reviewed & are unremarkable except as noted in HPI and below Exam Const: General: cooperative and no acute distress Cardio: Rate: regular rate Rhythm: regular rhythm GI: Inspection: normal to inspection GI Palp: Yes abdominal tenderness ( Right mid abdomen near for paracentesis), No Guarding due to palpation present (GI), Yes No hepatosplenomegaly present and No Palpable mass present Auscultation: normal bowel sounds Neuro: Cognition (Neuro): normal cognition Motor exam (neuro): No Asterixis during motor activity present Extrem: Right upper extremity: edema ( 1+) Left upper extremity: edema ( 1+) Objective Data Vital Signs Vital Signs: Vital Signs - 24 hr 01/14/21 13:44 01/14/21 14:10 01/14/21 14:20 Temperature 36.1 C L Pulse Rate 84 81 84 Respiratory Rate 16 16 18 Blood Pressure 105/72 108/69 107/22 L Pulse Oximetry 94 96 95 01/14/21 14:30 01/14/21 15:05 01/14/21 22:00 Temperature 36.4 C 36.3 C L Pulse Rate 85 95 81 Respiratory Rate 14 16 16 Blood Pressure 111/70 112/75 107/63 Pulse Oximetry 94 94 95 Intake/Output Intake/Output: Intake & Output 01/12/21 01/13/21 01/14/21 01/15/21 23:59 23:59 23:59 23:59 Intake Total 2009 1560 875 Output Total 850 Balance 2009 1560 25 Meds/Results Medications: Active Medications Generic Name Dose Route Start Last Admin Trade Name Freq PRN Reason Stop Dose Admin Acetaminophen 650 mg 01/11/21 00:55 Acetaminophen 325 Mg Tablet PO Q4H PRN Pain Rated 1-3 Aspirin 81 mg 01/12/21 08:00 01/14/21 11:16 Aspirin 81 Mg Chewable Tablet PO Not Given DAILY@0800 DORINA Buspirone HCl 15 mg 01/12/21 09:00 01/14/21 16:54 Buspirone Hcl 5 Mg Tablet PO 15 mg TID DORINA Administration Cyanocobalamin 1,000 mcg 01/30/21 09:00 Cyanocobalamin Inj 1,000 Mcg/Ml Vial IM MONTHLY DORINA Dapsone 100 mg 01/12/21 09:00 01/14/21 08:06 Dapsone 25 Mg Tablet PO 02/11/21 09:01 100 mg DAILY DORINA Administration Diphenhydramine HCl 25 mg 01/12/21 06:43 01/12/21 12:47 Diphenhydramine Hcl Cap 25 Mg Capsule PO 25 mg Q6H PRN Administration Itching Dorzolamide HCl 1 drop 01/12/21 09:00 01/14/21 16:55 Dorzolamide Hcl 2% Ophth Drops EACH EYE 1 drop BID DORINA Administration Duloxetine HCl 60 mg 01/12/21 09:00 01/14/21 08:08 Duloxetine Hcl 60 Mg Capsule.Dr PO Not Given BID DORINA Duloxetine HCl 60 mg 01/14/21 21:00
--- NOTE | 2021-01-15 08:19 | WPDANESPN ---
Anes - Prog Note Post-Op Date/Time: 01/15/21 08:19 Cardiovascular status: normal Respiratory status: normal Airway patency: baseline Mental status: baseline Post-Op hydration status: normal Vital Signs: Last Vital Signs Temp 36.1 C L 01/15/21 06:00 Pulse 74 01/15/21 06:00 Resp 16 01/15/21 06:00 BP 104/66 01/15/21 06:00 Pulse Ox 93 01/15/21 06:00 Pain Score (VAS): 0 I/O: Intake & Output 01/14/21 01/15/21 01/15/21 23:59 07:59 15:59 Intake Total 500 250 Output Total 1200 Balance 500 -950 Laboratory Tests 01/12/21 05:12 01/14/21 05:34 01/14/21 01/14/21 10:27 10:27 Peritoneal Source Peritoneal fluid Peritoneal Color Yellow Peritoneal Appearance Clear Peritoneal RBC 429 Periton Nuc Cells 1037 H Periton Neutrophils 1 Periton Lymphocytes 83 Periton Mesothelial 4 Periton Macrophages 12 Peritoneal Tot Protein Pending Peritoneal Albumin Pending Post-procedural complaints: none Patient Feedback: Patient satisfied with anesthetic care.
[2021-01-15 09:31] LABS: Hematocrit 41.9 % (37.0-47.0); Hemoglobin 13.1 g/dL (12.0-15.0); Mean Corpuscular HGB Conc 31.3 g/dl (32-36); Mean Corpuscular Hemoglobin 32.8 pg (26-34); Platelet Count Result 157 k/mm3 (150-375); Red Blood Count 3.99 M/mm3 (4.2-5.4); Red Cell Distribution Width 14.4 % (11.5-14.5); White Blood Count 6.3 K/mm3 (4.5-10.0)
[2021-01-15 10:25] LABS: Anion Gap 5 mmol/L (8-16); Blood Urea Nitrogen 11 mg/dL (7-17); Calcium 8.8 mg/dL (8.4-10.2); Carbon Dioxide 36 mmol/L (22-30); Chloride 93 mmol/L (98-107); Estimated CRCL calculation 43 ml/min; Estimated Glomerular Filt Rate > 60; Glucose 109 mg/dL (65-110); Potassium 3.4 mmol/L (3.4-5.0); Sodium 134 mmol/L (137-145)
--- NOTE | 2021-01-15 11:28 | PM.DS ---
DS: Admitting Diagnosis Admitting Diagnosis nausea vomiting cirrhosis DS: Discharge Diagnosis Discharge Diagnosis (1) Acute hypokalemia: Code(s): E87.6 - Hypokalemia Status: Acute Assessment and Plan: Resolved -she was given 2 additional days of potassium at d/c and plan for BMP outpt -likely due to nausea and vomiting which have resolved (2) Fatigue: Qualifiers: Fatigue type: unspecified Qualified Code(s): R53.83 - Other fatigue Code(s): R53.83 - Other fatigue Status: Acute Assessment and Plan: Improving (3) Cirrhosis of liver: Code(s): K74.60 - Unspecified cirrhosis of liver Status: Acute Assessment and Plan: Continue diuretics and lactulose -paracentesis 01/14/21 with improvement of symptoms. No signs of SBP. 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 - Polyarteritis nodosa Status: Acute Assessment and Plan: stable (7) Chronic back pain: Code(s): M54.9 - Dorsalgia, unspecified; G89.29 - Other chronic pain Status: Acute Assessment and Plan: Chronic and stable (8) Abdominal pain: Code(s): R10.9 - Unspecified abdominal pain Status: Acute Assessment and Plan: improved with paracentesis (9) Elevated liver enzymes: Code(s): R74.8 - Abnormal levels of other serum enzymes Status: Acute Assessment and Plan: Improving ast 49, alt 19, alkphos 267, total bilirubin 1.5 (10) Nausea & vomiting: Code(s): R11.2 - Nausea with vomiting, unspecified Status: Acute Assessment and Plan: resolved -EGD showing small varices in distal esophagus with mild gastritis and mild portal hypertensive change. -GI recommended Nadolol outpt. I will call the patient and speak to her about this medication and if she agrees will prescribe it. (11) Ascites: Code(s): R18.8 - Other ascites Status: Acute Assessment and Plan: as above DS: Summary Hospital Course Hospital Course: Date of service January 15, 2021 Patient is a 75-year-old female with a past medical history end-stage liver failure, cirrhosis, PA and, and vasculitis who presented emergency room on January 11, 2021 for nausea and weakness. Vitals in the ER were temperature 36.2? C, pulse 100, respiratory rate 17, blood pressure 127/89, pulse 93. CBC within normal limits. Initial BMP showed a potassium of 2.8. Ammonia less than 9. UA without suspicion of UTI. Abdominal CT showed cirrhosis with moderate amount of ascites, 4.6 thoracic aortic aneurysm (known according to patient), small sliding type hiatal hernia and sigmoid diverticulosis. Patient was admitted to the hospitalist service and potassium was replaced. She underwent a paracentesis which improved her nausea and overall well-being. No infection suspected as stated above with that. She also underwent an EGD which showed the above findings. I suspect that her low potassium was due to her nausea and decreased appetite as well as Lasix. She is also on spironolactone. I will give her a few more days of potassium at discharge and she will need a repeat BMP. If it still remains low with the resolution of nausea, she may need additional potassium due to her diuretic therapy. Pt states she is feeling much better and ready to go home. 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 She did mention that she knows about her aneurysm
[2021-01-15] MEDS: FLUTICASONE PROPIONATE 0.05% NA SPR 16 GM BTL (*BKC) 1 SPRAY NASAL (11:39)
[2021-01-15] MEDS: LACTULOSE 20 GM/30 ML UDC PO (11:40)
[2021-01-15] MEDS: prednisoLONE ACETATE 1% OPHTH 5 ML 1 DROP LEFT EYE (11:40)
[2021-01-15] MEDS: DORZOLAMIDE HCL 2% OPHTH DROPS 1 DROP EACH EYE (11:40)
[2021-01-15] MEDS: busPIRone HCL 5 MG TABLET 15 MG PO (11:41)
[2021-01-15] MEDS: ASPIRIN 81 MG CHEWABLE TABLET PO (11:42)
[2021-01-15] MEDS: FERROUS SULFATE 324 MG TABLET PO (11:42)
[2021-01-15] MEDS: FUROSEMIDE 20 MG TABLET PO (11:42)
[2021-01-15] MEDS: THERAPEUTIC MULTIVITAMINS/MINERALS TAB (*BKC) 1 TABLET PO (11:42)
[2021-01-15] MEDS: PANTOPRAZOLE 40 MG TABLET PO (11:42)
[2021-01-15] MEDS: THIAMINE HCL 100 MG TABLET PO (11:42)
[2021-01-15] MEDS: predniSONE 1 MG TABLET 2 MG PO (11:43)
[2021-01-15] MEDS: PROCHLORPERAZINE MALEATE 5 MG TABLET PO (11:43)
[2021-01-15] MEDS: DAPSONE 25 MG TABLET 100 MG PO (11:44)
[2021-01-15] MEDS: rifAXIMin 550 MG TABLET PO (11:44)
[2021-01-15] MEDS: predniSONE 5 MG TABLET PO (11:46)
[2021-01-15] MEDS: SPIRONOLACTONE 50 MG TABLET PO (11:46)
[2021-01-15 14:00] VITALS: BP 109/67; PULSE 89; RESP 14; TEMP 36.6; O2SAT 94
[2021-01-16 06:13] LABS: Hepatitis B DNA PCR <1.00 Log IU/mL; Hepatitis B DNA PCR <10 IU/mL
[2021-01-17 12:47] LABS: Hepatitis Be Antibody Reactive; Hepatitis Be Antigen Nonreactive
[2021-01-17 13:28] LABS: Total Protein Peritoneal Fluid <3.0 g/dL
[2021-01-18 22:16] LABS: Albumin Peritoneal Fluid 0.9 g/dL
--- NOTE | 2021-01-22 13:30 | PC.NURSE ---
Ascites fluid shows no growth.
== END 2021-01-15 16:30 | disposition hospice, home (50) | DRG 641 ==
LOC: ANHED 19:03 → ANH2MED 21:42
PROVIDERS: Emergency Medicine; Internal Medicine; Internal Medicine Gastroenterology; Admitting Provider Internal Medicine; Emergency Provider Emergency Medicine; PCP Internal Medicine; Visit Provider Physician Assistant
PROC: 0DJ08ZZ Inspection of Upper Intestinal Tract, Via Natural or Artificial Opening Endoscopic (ICD-10-PCS; CPT 43235; principal; 2021-01-14 14:30)
DX: E87.6 Hypokalemia (principal); M31.8 Other specified necrotizing vasculopathies; M30.0 Polyarteritis nodosa; R18.8 Other ascites; I85.00 Esophageal varices without bleeding; B18.1 Chronic viral hepatitis B without delta-agent; K72.90 Hepatic failure, unspecified without coma; K74.60 Unspecified cirrhosis of liver; M54.9 Dorsalgia, unspecified; G89.29 Other chronic pain; R74.8 Abnormal levels of other serum enzymes; F41.8 Other specified anxiety disorders; K29.70 Gastritis, unspecified, without bleeding; Z98.84 Bariatric surgery status; T50.1X5A Adverse effect of loop [high-ceiling] diuretics, initial encounter
CPT/HCPCS: 36415; 49083; 71045; 74176; 80048; 80053; 80076; 81001; 82042; 82140; 83690; 83735; 84157; 85025; 85027; 85610; 86707; 87070; 87075; 87081; 87205; 87340; 87350; 87517; 89051; 93005; 96374; 96375; 99285; A9270; J2270; J2405; J2704; J3480; J7060; J7120; J7512

== ENCOUNTER 2021-05-02 14:03 | Emergency (ER) | payer OTHER, MEDICARE, SELFPAY ==
--- NOTE | ~2021-05-02 | XR_ITS ---
EXAMINATION: XR knee RT min 4V DATE: 05/02/2021 14:41 INDICATION: Generalized right knee pain TECHNIQUE: Anteroposterior, 2 oblique and crosstable lateral views of the right knee were obtained COMPARISON: None. FINDINGS: Right total knee arthroplasty without patellar resurfacing which appears well seated in near-anatomic alignment. No periprosthetic lucency to suggest loosening or infection. No fracture. Soft tissues ar e unremarkable with no right knee joint effusion. IMPRESSION: 1. Right total knee arthroplasty in near-anatomic alignment with no joint effusion or acute osseous a bnormality. Reviewed, dictated and finalized at location A. MENTATION LIAISON IMPRESSION: 1. Right total knee arthroplasty in near-anatomic alignment with no joint effus ion or acute osseous abnormality.
[2021-05-02 14:17] VITALS: BP 107/72; PULSE 106; RESP 16; TEMP 36.4; O2SAT 99
--- NOTE | 2021-05-02 14:28 | ED.UPPEXIN ---
HPI - Extremity Injury (Upper) General Chief Complaint: Extremity Injury, Upper Stated Complaint: fall- left arm skin tears Time Seen by Provider: 05/02/21 14:27 Source: patient Mode of arrival: ambulatory Limitations: no limitations History of Present Illness HPI narrative: Patient is a 76-year-old female with a history of autoimmune hepatitis leading to cirrhosis, liver disease, presenting for evaluation of skin tears to the left upper extremity and left knee pain. Patient states that she tripped on a small container next to a chair that she was sitting on, causing her to fall to her knees, bracing herself with her arms. Her left arm scraped a table as she fell, causing her to be skin tears to her left elbow, left forearm, left hand. Patient denies any head trauma or loss of consciousness. Patient states she landed on all fours. State patient states that she tripped over the container denies any prodromal symptoms such as chest pain, shortness of breath, lightheadedness, dizziness, palpitations prior to the fall. Patient is on any anticoagulation. She denies any chest pain, shoulder pain, elbow pain, wrist pain. She does report achiness in her bilateral knees. Patient does have history of left knee replacement. Patient has been ambulatory, no difficulty with gait. Denies ankle pain. Denies focal weakness or numbness. Related Data Home Medications Medication Instructions Recorded Confirmed Xifaxan 40 mg PO BID 01/11/21 02/19/21 acetaminophen 650 mg PO Q4H PRN 01/11/21 02/19/21 alclometasone applic TOPICAL 01/11/21 02/19/21 aspirin 81 mg PO DAILY 01/11/21 02/19/21 buprenorphine 7.5 mcg TRANSDERMAL WEEKLY 01/11/21 02/19/21 buspirone 15 mg PO TID 01/11/21 02/19/21 cyanocobalamin (vitamin B-12) 1,000 mcg IM MONTHLY 01/11/21 02/19/21 dapsone 100 mg PO DAILY 01/11/21 02/19/21 dexamethasone 01/11/21 02/19/21 dorzolamide (PF) 1 drp EACH EYE BID 01/11/21 02/19/21 duloxetine 60 mg PO BID 01/11/21 02/19/21 ergocalciferol (vitamin D2) 50,000 unit PO MONTHLY 01/11/21 02/19/21 ferrous sulfate [FeroSul] 325 mg PO DAILY 01/11/21 02/19/21 fluticasone propionate 50 mcg INTRANASAL DAILY PRN 01/11/21 02/19/21 furosemide 20 mg PO DAILY 01/11/21 02/19/21 ipratropium bromide 2 puff INHALATION Q6H PRN 01/11/21 02/19/21 lactulose 30 ml PO TID 01/11/21 02/19/21 lorazepam 0.5 mg PO BID PRN 01/11/21 02/19/21 montelukast 10 mg PO HS 01/11/21 02/19/21 multivitamin 1 tablet PO DAILY 01/11/21 02/19/21 multivitamin with minerals [Daily 1 tablet PO DAILY 01/11/21 02/19/21 Multivitamin-Minerals] ondansetron 4 mg PO Q8H PRN 01/11/21 02/19/21 pantoprazole 40 mg PO BID 01/11/21 02/19/21 prednisolone acetate 1 drp LEFT EYE BID 01/11/21 02/19/21 prednisone 2 mg PO DAILY 01/11/21 02/19/21 prednisone 5 mg PO DAILY 01/11/21 02/19/21 prochlorperazine maleate 5 mg PO Q6H PRN 01/11/21 02/19/21 spironolactone 50 mg PO DAILY 01/11/21 02/19/21 tenofovir alafenamide 25 mg PO DAILY 01/11/21 02/19/21 thiamine HCl (vitamin B1) 100 mg PO DAILY 01/11/21 02/19/21 tramadol 50 mg PO Q8H PRN 01/11/21 02/19/21 trazodone 100 mg PO HS 01/11/21 02/19/21 Allergies Allergy/AdvReac Type Severity Reaction Status Date / Time adhesive Allergy Unknown Ulcers Verified 05/02/21 14:29 latex Allergy Unknown Ulcers Verified 05/02/21 14:29 Sulfa (Sulfonamide Allergy Unknown Rash Verified 05/02/21 14:29 Antibiotics) azathioprine AdvReac Other Verified 05/02/21 14:29 Review of Systems Review of Systems: CONSTITUTIONAL: Denies fever CARDIOVASCULAR: Denies chest pain, palpitations RESPIRATORY: Denies cough or dyspnea. GASTROINTESTINAL: Denies abdominal pain SKIN: Denies rash, reports skin tears to left upper extremity MUSCULOSKELETAL: Denies back pain, reports left knee pain NEUROLOGIC: Denies headache, denies focal weakness or numbness . [facility] Past Medical History Medical History Ascites Chronic hepatitis B Liver encephalopathy
[2021-05-02] MEDS: TETANUS,DIPHTHERIA,AC PERTUSSIS ADULT (0.5 ML) BOOSTRIX IM (14:55)
[2021-05-02 15:22] VITALS: BP 122/70; PULSE 76; RESP 18; O2SAT 99
== END 2021-05-02 15:23 | disposition home or self-care (01) ==
PROVIDERS: Emergency Provider Emergency Medicine; PCP Internal Medicine
DX: S51.012A Laceration without foreign body of left elbow, initial encounter (principal); S51.812A Laceration without foreign body of left forearm, initial encounter; M25.562 Pain in left knee; Z23 Encounter for immunization; Z79.899 Other long term (current) drug therapy; Z79.82 Long term (current) use of aspirin; W18.39XA Other fall on same level, initial encounter
CPT/HCPCS: 73564; 90471; 90715; 99283

== ENCOUNTER 2021-08-06 14:12 | Emergency (ER) | payer MEDICARE, SELFPAY ==
--- NOTE | ~2021-08-06 | XR_ITS ---
EXAMINATION: XR hip RT 2V w AP pelvis EXAM DATE: 08/06/2021 16:03 INDICATION: Initial encounter following injury, with pain of the pelvis, right hip. TECHNIQUE: Right hip frontal, 'frog leg' projections for interpretation. Frontal projection pelvis. Comparison is made to prior examination from 12/17/2017. FINDINGS: Smooth right hip femoral head contour, no radiographic evidence of avascular necrosis. The re is mild symmetric bilateral hip primary osteoarthritis. There are no acute fractures or dislocatio ns identified. There is no subcutaneous gas. The soft tissue is unremarkable. There are no radiop aque foreign bodies. IMPRESSION: 1. Pelvis, right hip exam without acute osseous findings. Reviewed, dictated and finalized at location A. ER/WAITRESS BUFFET
--- NOTE | ~2021-08-06 | CT_ITS ---
EXAMINATION: CT brain wo con INDICATION: Head injury COMPARISON: 11/17/2018 TECHNIQUE: Standard unenhanced head CT. The dose-length product (DLP) was 605.33 mGy-cm. The mA was a djusted according to patient size. Iterative reconstruction technique was employed. FINDINGS: There is no acute intraparenchymal hemorrhage. No evidence of mass lesion. No evidence of a cute infarction. There is mild periventricular and subcortical hypodensity probably related to small vessel ischemic disease. There is mild prominence of the sulci and ventricles related to cerebral atr ophy. Intracranial calcified cerebral atherosclerosis is noted. There are no extra-axial collections. There is no mass effect or midline shift. Changes in the globes are likely from ocular lens surgery. There is mild mucosal thickening of the paranasal sinuses. IMPRESSION: 1. No acute intracranial abnormality. 2. Age related findings. Reviewed, dictated and finalized at location B. E ALIGNER
--- NOTE | ~2021-08-06 | CT_ITS ---
EXAMINATION: CT cervical spine wo con DATE: 08/06/2021 16:12 INDICATION: Head injury TECHNIQUE: Computed tomography (CT) of the cervical spine was performed without intravenous contrast. The dose-length product (DLP) was 94.62 mGy-cm. Automated exposure control and iterative reconstruct ion technique were employed. COMPARISON: 10/16/2013 FINDINGS: There are 2 mm of stable anterolisthesis of C3 on C4 and C6 on C7 and 3 mm of stable roopa listhesis of C4 on C5. There is unchanged severe loss of intervertebral disc space height at C5-6. Th e odontoid is intact. There is no fracture. There is severe facet and uncovertebral joint osteoarthri tis. IMPRESSION: 1. Severe cervical spondylosis without acute findings or significant interval change. Reviewed, dictated and finalized at location B. 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 Severe cervical spondylosis without acute findings or significant interval karson rice.
[2021-08-06 14:29] VITALS: BP 111/84; PULSE 106; RESP 18; TEMP 36.8; O2SAT 100
--- NOTE | 2021-08-06 15:14 | PC.NURSE ---
PT REPORTS UPON WAKING THIS AM SHE FELL OUT OF BED. PT REPORTS SHE HIT HER HEAD, NO LOC AND HAS A SKIN TEAR TO LEFT ELBOW. PT REPORTS SHE HURTS ALL OVER.
[2021-08-06] MEDS: MORPHINE SULFATE INJ (*CRX) 10 MG/ML AMP 6 MG IM (16:17)
[2021-08-06] MEDS: ONDANSETRON HCL ODT 4 MG TABLET PO (16:18)
--- NOTE | 2021-08-06 19:13 | ED.FALL ---
HPI - Fall General Chief Complaint: Fall Stated Complaint: fall Time Seen by Provider: 08/06/21 15:29 Source: patient and family Mode of arrival: ambulatory Limitations: no limitations History of Present Illness HPI Narrative: Patient is 76 years old white female got out of bed yesterday, lost balance and fell backward, no loss of consciousness, complaining of right hip pain and headache. History of hepatitis B with liver failure, ascites, hospice. Related Data Home Medications Medication Instructions Recorded Confirmed Xifaxan 40 mg PO BID 01/11/21 02/19/21 acetaminophen 650 mg PO Q4H PRN 01/11/21 02/19/21 alclometasone applic TOPICAL 01/11/21 02/19/21 aspirin 81 mg PO DAILY 01/11/21 02/19/21 buprenorphine 7.5 mcg TRANSDERMAL WEEKLY 01/11/21 02/19/21 buspirone 15 mg PO TID 01/11/21 02/19/21 cyanocobalamin (vitamin B-12) 1,000 mcg IM MONTHLY 01/11/21 02/19/21 dapsone 100 mg PO DAILY 01/11/21 02/19/21 dexamethasone 01/11/21 02/19/21 dorzolamide (PF) 1 drp EACH EYE BID 01/11/21 02/19/21 duloxetine 60 mg PO BID 01/11/21 02/19/21 ergocalciferol (vitamin D2) 50,000 unit PO MONTHLY 01/11/21 02/19/21 ferrous sulfate [FeroSul] 325 mg PO DAILY 01/11/21 02/19/21 fluticasone propionate 50 mcg INTRANASAL DAILY PRN 01/11/21 02/19/21 furosemide 20 mg PO DAILY 01/11/21 02/19/21 ipratropium bromide 2 puff INHALATION Q6H PRN 01/11/21 02/19/21 lactulose 30 ml PO TID 01/11/21 02/19/21 lorazepam 0.5 mg PO BID PRN 01/11/21 02/19/21 montelukast 10 mg PO HS 01/11/21 02/19/21 multivitamin 1 tablet PO DAILY 01/11/21 02/19/21 multivitamin with minerals [Daily 1 tablet PO DAILY 01/11/21 02/19/21 Multivitamin-Minerals] ondansetron 4 mg PO Q8H PRN 01/11/21 02/19/21 pantoprazole 40 mg PO BID 01/11/21 02/19/21 prednisolone acetate 1 drp LEFT EYE BID 01/11/21 02/19/21 prednisone 2 mg PO DAILY 01/11/21 02/19/21 prednisone 5 mg PO DAILY 01/11/21 02/19/21 prochlorperazine maleate 5 mg PO Q6H PRN 01/11/21 02/19/21 spironolactone 50 mg PO DAILY 01/11/21 02/19/21 tenofovir alafenamide 25 mg PO DAILY 01/11/21 02/19/21 thiamine HCl (vitamin B1) 100 mg PO DAILY 01/11/21 02/19/21 tramadol 50 mg PO Q8H PRN 01/11/21 02/19/21 trazodone 100 mg PO HS 01/11/21 02/19/21 Allergies Allergy/AdvReac Type Severity Reaction Status Date / Time adhesive Allergy Unknown Ulcers Verified 05/02/21 14:29 latex Allergy Unknown Ulcers Verified 05/02/21 14:29 Sulfa (Sulfonamide Allergy Unknown Rash Verified 05/02/21 14:29 Antibiotics) azathioprine AdvReac Other Verified 05/02/21 14:29 Review of Systems Review of Systems: CONSTITUTIONAL: Denies fever, chills, or sweats. EYES: Denies visual changes, redness, or discharge. ENT: Denies rhinorrhea, congestion, sore throat, or otalgia. CARDIOVASCULAR: Denies chest pain, palpitations, or edema. RESPIRATORY: Denies cough or dyspnea. GASTROINTESTINAL: Denies abdominal pain, nausea, vomiting, or diarrhea. GENITOURINARY: Denies dysuria or hematuria. SKIN: Denies rash or itching. MUSCULOSKELETAL: Denies back pain, joint pain, or myalgia. NEUROLOGIC: Denies headache, numbness, or weakness. PSYCHIATRIC: Denies anxiety or depression. [facility] Past Medical History Medical History Ascites Chronic hepatitis B Liver encephalopathy Family History Family History Mother Family history of cardiovascular disease, Onset Age: 72 Cerebrovascular accident Father Cerebrovascular accident Social History Social History Smoking status: Never smoker Alcohol intake: never Substance use: current Substance use type: marijuana Gender identity (if verbalized by the patient): Female Spiritual care concerns: No Exam Narrative: General appearance: Well-developed, well-nourished Skin: 2+ edema lower extremity bilaterally Head: Normocephalic, nontraumatic Eyes: Clear conjun
[2021-08-06 19:31] VITALS: PULSE 95; RESP 18; O2SAT 97
== END 2021-08-06 19:27 | disposition hospice, home (50) ==
PROVIDERS: Emergency Provider Emergency Medicine; PCP Internal Medicine
DX: S09.90XA Unspecified injury of head, initial encounter (principal); S79.911A Unspecified injury of right hip, initial encounter; B18.1 Chronic viral hepatitis B without delta-agent; K72.90 Hepatic failure, unspecified without coma; R18.8 Other ascites; Z79.82 Long term (current) use of aspirin; M47.812 Spondylosis without myelopathy or radiculopathy, cervical region; W18.39XA Other fall on same level, initial encounter
CPT/HCPCS: 70450; 72125; 73502; 96372; 99284; A9270; J2270

== ENCOUNTER 2021-08-16 21:32 | Observation (INO) | payer MEDICARE, SELFPAY ==
[2021-08-16 21:36] VITALS: BP 120/88; PULSE 106; RESP 16; TEMP 36.6; O2SAT 96
--- NOTE | 2021-08-16 21:38 | PC.NURSE ---
[facility] - [facility] - [phone]
--- NOTE | 2021-08-16 21:41 | ECG_ITS ---
Measurements Intervals [place] Rate: 95 P: 166 [place]: 366 QRS: -59 QRSD: 78 T: 137 QT: 348 QTc: 438 Interpretive Statements PROBABLE SINUS RHYTHM LEFT ANTERIOR FASCICULAR BLOCK [QRS AXIS <= -45, QR IN I, RS IN II] POSSIBLE ANTERIOR MYOCARDIAL INFARCTION , OF INDETERMINATE AGE [30 ms Q WAVE IN V3/V4, OR R < 0.2 mV IN V4] NONSPECIFIC T-WAVE ABNORMALITY LOW VOLTAGE SIGNIFICANT BASELINE ARTIFACT LIMITS INTERPRETATION ABNORMAL ECG Electronically Signed On 08-17-2021 9:27:51 CDT by Osmany Engel M.D.
[2021-08-16 21:46] VITALS: BP 120/88; PULSE 106; RESP 16; TEMP 36.6; O2SAT 96
--- NOTE | 2021-08-16 21:47 | ED.NAVMDI ---
HPI - Nausea/Vomiting/Diarrhea General Chief complaint: Nausea/Vomiting/Diarrhea Stated complaint: N/V - hospice pt Time Seen by Provider: 08/16/21 21:38 History of Present Illness HPI Narrative: 76-year-old female with end-stage liver disease presents to the emergency room with acute onset of nausea and vomiting. Patient is under the care of hospice. Patient states she has tried Compazine and Zofran with no relief of symptoms. Denies coffee-ground emesis. Related Data Home Medications Medication Instructions Recorded Confirmed Xifaxan 40 mg PO BID 01/11/21 02/19/21 acetaminophen 650 mg PO Q4H PRN 01/11/21 02/19/21 alclometasone applic TOPICAL 01/11/21 02/19/21 aspirin 81 mg PO DAILY 01/11/21 02/19/21 buprenorphine 7.5 mcg TRANSDERMAL WEEKLY 01/11/21 02/19/21 buspirone 15 mg PO TID 01/11/21 02/19/21 cyanocobalamin (vitamin B-12) 1,000 mcg IM MONTHLY 01/11/21 02/19/21 dapsone 100 mg PO DAILY 01/11/21 02/19/21 dexamethasone 01/11/21 02/19/21 dorzolamide (PF) 1 drp EACH EYE BID 01/11/21 02/19/21 duloxetine 60 mg PO BID 01/11/21 02/19/21 ergocalciferol (vitamin D2) 50,000 unit PO MONTHLY 01/11/21 02/19/21 ferrous sulfate [FeroSul] 325 mg PO DAILY 01/11/21 02/19/21 fluticasone propionate 50 mcg INTRANASAL DAILY PRN 01/11/21 02/19/21 furosemide 40 mg PO DAILY 01/11/21 02/19/21 ipratropium bromide 2 puff INHALATION Q6H PRN 01/11/21 02/19/21 lactulose 30 ml PO TID 01/11/21 02/19/21 lorazepam 0.5 mg PO BID PRN 01/11/21 02/19/21 montelukast 10 mg PO HS 01/11/21 02/19/21 multivitamin 1 tablet PO DAILY 01/11/21 02/19/21 multivitamin with minerals [Daily 1 tablet PO DAILY 01/11/21 02/19/21 Multivitamin-Minerals] ondansetron 4 mg PO Q8H PRN 01/11/21 02/19/21 pantoprazole 40 mg PO BID 01/11/21 02/19/21 prednisolone acetate 1 drp LEFT EYE BID 01/11/21 02/19/21 prednisone 2 mg PO DAILY 01/11/21 02/19/21 prednisone 5 mg PO DAILY 01/11/21 02/19/21 prochlorperazine maleate 5 mg PO Q6H PRN 01/11/21 02/19/21 spironolactone 50 mg PO DAILY 01/11/21 02/19/21 tenofovir alafenamide 25 mg PO DAILY 01/11/21 02/19/21 thiamine HCl (vitamin B1) 100 mg PO DAILY 01/11/21 02/19/21 tramadol 50 mg PO Q8H PRN 01/11/21 02/19/21 trazodone 100 mg PO HS 01/11/21 02/19/21 atropine (bulk) ea MISCELLANEOUS 08/16/21 bisacodyl mg RECTAL 08/16/21 08/16/21 lorazepam 08/16/21 montelukast mg 08/16/21 morphine PO 08/16/21 pantoprazole PO 08/16/21 sertraline mg 08/16/21 tenofovir alafenamide [Vemlidy] mg 08/16/21 Allergies Allergy/AdvReac Type Severity Reaction Status Date / Time adhesive Allergy Unknown Ulcers Verified 05/02/21 14:29 latex Allergy Unknown Ulcers Verified 05/02/21 14:29 Sulfa (Sulfonamide Allergy Unknown Rash Verified 05/02/21 14:29 Antibiotics) azathioprine AdvReac Other Verified 05/02/21 14:29 Review of Systems Review of Systems: CONSTITUTIONAL: Denies fever, chills, or sweats. EYES: Denies visual changes, redness, or discharge. ENT: Denies rhinorrhea, congestion, sore throat, or otalgia. CARDIOVASCULAR: Denies chest pain, palpitations, or edema. RESPIRATORY: Denies cough or dyspnea. GASTROINTESTINAL: Reports abdominal distention, nausea, vomiting. Denies constipation or diarrhea GENITOURINARY: Denies dysuria or hematuria. SKIN: Denies rash or itching. MUSCULOSKELETAL: Denies back pain, joint pain, or myalgia. NEUROLOGIC: Denies headache, numbness, dizziness, or weakness. PSYCHIATRIC: Denies anxiety or depression. [facility] Past Medical History Medical History Ascites Chronic hepatitis B Liver encephalopathy Family History Family History Mother Family history of cardiovascular disease, Onset Age: 72 Cerebrovascular accident Father Cerebrovascular accident Social History Social History Smoking status: Never smoker Alcohol intake: never Substance use
[2021-08-16] MEDS: diphenhydrAMINE HCl INJ 50 MG/ML VIAL 25 MG IV PUSH (21:52)
[2021-08-16] MEDS: METOCLOPRAMIDE HCL INJ 10 MG/2 ML VIAL IV PUSH (21:52)
[2021-08-16] MEDS: SODIUM CHLORIDE 0.9% IV 1,000 ML 150 ML IV CONT (21:52)
[2021-08-16 21:58] LABS: Basophils Absolute Auto 0.1 K/mm3 (0.0-0.1); Basophils Percent Auto 0.6 % (0.2-1.2); Eosinophils Absolute Auto 0.1 K/mm3 (0-0.3); Eosinophils Percent Auto 0.5 % (0-4.4); Hematocrit 50.8 % (37.0-47.0); Hemoglobin 16.3 g/dL (12.0-15.0); Immature Granulocyte Absolute 0.06 K/mm3 (0.00-0.031); Immature Granulocyte Percent A 0.5 % (0-0.5); Lymphocytes Absolute Auto 5.16 K/mm3 (0.9-3.2); Lymphocytes Percent Auto 41.3 % (18.3-44.2); Mean Corpuscular HGB Conc 32.1 g/dl (32-36); Mean Corpuscular Hemoglobin 34.3 pg (26-34); Mean Corpuscular Volume 106.9 fl (80-100); Mean Platelet Volume 10.5 fl (7.4-10.4); Monocytes Absolute Auto 1.2 K/mm3 (0.1-0.6); Monocytes Percent Auto 9.7 % (2.6-8.5); Neutrophils Absolute Auto 5.9 K/mm3 (1.3-6.7); Neutrophils Percent Auto 47.4 % (45.5-73.1); Platelet Count Result 299 k/mm3 (150-375); Red Blood Count 4.75 M/mm3 (4.2-5.4); Red Cell Distribution Width 14.1 % (11.5-14.5); White Blood Count 12.5 K/mm3 (4.5-10.0)
[2021-08-16 22:12] LABS: Ammonia < 9 umol/L (9-30)
[2021-08-16 22:14] LABS: Lactic Acid Reflex 2.6 mmol/L (0.7-2.1)
[2021-08-16 22:15] LABS: Alanine Aminotransferase 33 U/L (4-35); Albumin Level 4.1 g/dL (3.5-5.1); Alkaline Phosphatase 389 U/L (38-126); Anion Gap 7 mmol/L (8-16); Aspartate Amino Transferase 99 U/L (14-36); Bilirubin,Total 5.5 mg/dL (0.2-1.3); Blood Urea Nitrogen 16 mg/dL (7-17); Calcium 9.1 mg/dL (8.4-10.2); Carbon Dioxide 39 mmol/L (22-30); Chloride 91 mmol/L (98-107); Estimated CRCL calculation 34 ml/min; Estimated Glomerular Filt Rate 54; Glucose 85 mg/dL (65-110); Potassium 3.3 mmol/L (3.4-5.0); Sodium 137 mmol/L (137-145)
--- NOTE | 2021-08-16 22:43 | PM.IMHP ---
H&P: HPI History of Present Illness Date/Time: 08/16/21 22:43 Chief Complaint: Nausea and vomiting. Narrative: This is a 76-year-old female with past medical history significant for end-stage liver disease on hospice patient presents to the emergency room due to intractable nausea and vomiting at home fatigue unable to care for self is with her. Patient has been not been able to eat in the last several days secondary to these. Patient also with abdominal pain and distension. Denies any fevers, rigors, chills, cough, shortness of breath ,sputum production. Patient is being admitted for palliative care. Review of Systems Review of Systems: Nausea and vomiting, generalized weakness. Constitutional: Constitutional: Denies chills, Reports fatigue, Denies fever(s), Reports lethargy, Reports malaise, Denies night sweats and Reports weakness Eyes: Eyes: Denies change in vision ENT: Denies dysphagia, Denies vertigo, Denies dizziness, Denies nasal congestion, Denies nasal discharge, Denies nasal obstruction and Denies odynophagia Respiratory: Respiratory: Denies cough and Denies dyspnea Gastrointestinal: Gastrointestinal: Reports abdominal pain, Reports bloating, Denies dyspepsia, Denies heartburn, Reports nausea and Reports vomiting Comments: Distension Genitourinary: Genitourinary: Denies dysuria and Denies flank pain Musculoskeletal: Musculoskeletal: Denies back pain, Denies arthralgias, Denies joint swelling and Reports muscle weakness Neurologic: Denies focal weakness and Denies Sensory deficit (Neuro) Psychiatric: Psychiatric: Reports no additional psychiatric complaints and Reports as per HPI Endocrine: Endocrine: Denies cold intolerance, Denies heat intolerance, Denies polyphagia, Denies polydipsia, Denies polyuria and Denies palpitations Hematologic/Lymphatic: Hematologic/Lymphatic: Reports no additional hematologic/lymphatic complaints and Reports as per HPI Allergic/Immunologic: Allergic/Immunologic: Reports no additional allergic/immunologic complaints and Reports as per HPI PMF Past Medical History Medical History Ascites Chronic hepatitis B Liver encephalopathy Family History Family History Mother Family history of cardiovascular disease, Onset Age: 72 Cerebrovascular accident Father Cerebrovascular accident Social History Social History Smoking status: Never smoker Alcohol intake: never Substance use: current Substance use type: marijuana Gender identity (if verbalized by the patient): Female Spiritual care concerns: No Meds Home Medications and Allergies Home Medications Medication Instructions Recorded Confirmed Type Xifaxan 40 mg PO BID 01/11/21 08/17/21 History acetaminophen 650 mg PO Q4H PRN 01/11/21 08/17/21 History aspirin 81 mg PO DAILY 01/11/21 08/17/21 History buspirone 15 mg PO TID 01/11/21 08/17/21 History cyanocobalamin (vitamin B-12) 1,000 mcg IM MONTHLY 01/11/21 08/17/21 History dapsone 100 mg PO DAILY 01/11/21 08/17/21 History dorzolamide (PF) 1 drp EACH EYE BID 01/11/21 08/17/21 History duloxetine 60 mg PO DAILY 01/11/21 08/17/21 History ergocalciferol (vitamin D2) 50,000 unit PO MONTHLY 01/11/21 08/17/21 History fluticasone propionate 50 mcg INTRANASAL DAILY PRN 01/11/21 08/16/21 History furosemide 40 mg PO DAILY 01/11/21 08/17/21 History lactulose 30 ml PO TID 01/11/21 08/17/21 History lorazepam 0.5 mg PO BID PRN 01/11/21 08/17/21 History montelukast 10 mg PO HS 01/11/21 08/17/21 History ondansetron 4 mg PO Q8H PRN 01/11/21 08/17/21 History pantoprazole 40 mg PO BID 01/11/21 08/17/21 History prednisolone acetate 1 drp LEFT EYE BID 01/11/21 08/17/21 History prednisone 30 mg PO DAILY 01/11/21 08/17/21 History prochlorperazine maleate 10 mg PO Q6H PRN 01/11/21 08/17/21 History spironolac
[2021-08-16] MEDS: MORPHINE SULFATE (*CRX) 4 MG/ML INJ IV PUSH (22:48)
[2021-08-16 23:13] VITALS: BP 124/57; PULSE 92; RESP 16; TEMP 36.4; O2SAT 94
--- NOTE | 2021-08-16 23:32 | ADMGEN ---
This patient, Paula Lan, was admitted to 2 Medical Room [facility]-01 @2330. Patient/family oriented to hospital policies and general routines including ID bracelet, bed and alarms, visiting hours, pain management, procedures, bathroom and other care routines, personal items, smoking policy, room service/diet, and visiting hours. Information on how to activate the Rapid Response Team has been discussed. Patient/Family are encouraged to report perceived risks to care and to ask questions if they do not understand what they are told or what they should do.
[2021-08-16 23:57] VITALS: BP 120/80; PULSE 94; RESP 18; TEMP 36.5; O2SAT 93; BMI 20.6
[2021-08-17 00:55] LABS: Reflex Lactic Acid Yes or No Add Lactic
[2021-08-17 02:26] LABS: Add Urine Microscopic? YES; Appearance Urine Clear (Clear); Bilirubin Urine Negative (Negative); Blood Urine Negative (Negative); Color Urine Amber (Yellow); Glucose Urine UA Negative (Negative); Ketones Urine Negative (Negative); Leukocyte Esterase Ur 2+ LEU/UL (Negative); Mucus Urine Rare /lpf; Nitrate Urine Negative (Negative); Protein Urine Negative (Negative); RBC Urine 0-2 /hpf (0-2); Specific Grav Ur 1.008 (1.001-1.035); Squamous Epithelial Cell Urine Occasional /hpf (Few); WBC Urine 16-20 /hpf
[2021-08-17 03:03] VITALS: BP 106/72; PULSE 89; RESP 20; TEMP 36.6; O2SAT 92
[2021-08-17] MEDS: ASPIRIN 81 MG ENTERIC TABLET PO (09:38)
[2021-08-17] MEDS: busPIRone HCL 10 MG TABLET PO ×3 (09:39→16:50)
[2021-08-17] MEDS: busPIRone HCL 5 MG TABLET PO ×3 (09:40→16:50)
[2021-08-17] MEDS: DAPSONE 25 MG TABLET 100 MG PO (09:40)
[2021-08-17] MEDS: FUROSEMIDE 40 MG TABLET PO (09:41)
[2021-08-17] MEDS: DULoxetine HCL 60 MG CAPSULE.DR PO (09:41)
[2021-08-17] MEDS: predniSONE 10 MG TABLET 30 MG PO (09:41)
[2021-08-17] MEDS: SERTRALINE HCL 50 MG TABLET PO (09:41)
[2021-08-17] MEDS: THIAMINE HCL 100 MG TABLET PO (09:42)
[2021-08-17] MEDS: prednisoLONE ACETATE 1% OPHTH 5 ML 1 DROP LEFT EYE ×2 (09:42→16:50)
[2021-08-17] MEDS: SPIRONOLACTONE 50 MG TABLET 100 MG PO (09:42)
[2021-08-17] MEDS: PANTOPRAZOLE 40 MG TABLET PO ×2 (09:42→21:27)
[2021-08-17] MEDS: LACTULOSE 20 GM/30 ML UDC PO ×2 (09:42→16:50)
[2021-08-17] MEDS: DORZOLAMIDE HCL 2% OPHTH DROPS 1 DROP EACH EYE ×2 (09:43→16:50)
[2021-08-17] MEDS: traMADol HCL (*CRX) 50 MG TABLET PO ×2 (10:11→19:51)
--- NOTE | 2021-08-17 10:39 | PM.IMPN ---
Progress Note: A&P Assessment and Plan (1) Terminal illness, late stage: Code(s): R69 - Illness, unspecified Status: Acute Assessment and Plan: Patient has been on hospice for several months. Once patient has been discharged can be admitted to hospice for her liver failure. (2) End-stage liver disease: Code(s): K72.10 - Chronic hepatic failure without coma Status: Acute Assessment and Plan: Patient is at baseline no need for any further treatment for her liver failure. (3) Intractable nausea and vomiting: Code(s): R11.2 - Nausea with vomiting, unspecified Status: Acute Assessment and Plan: Likely secondary to terminal illness of liver disease. Patient states she made it to the evening without any nausea or vomiting. Patient states she tolerated a popsicle and clear liquids this morning. Will advance her to full liquid diet if she continues to do well consider discharge tomorrow morning. (4) Hypokalemia: Code(s): E87.6 - Hypokalemia Status: Acute Assessment and Plan: Will supplement potassium and continue monitor patient's potassium levels. Laboratories have been ordered for the a.m.. Subjective Date/time seen: 08/17/21 10:39 Patient resting in bed and states she is feeling significantly improved today. Patient states she has not had any vomiting throughout the night and did tolerate a popsicle well this morning. Patient states prior to coming to the hospital she had not eaten in 3 days. Patient states that she feels that she is ready to try to advance her diet to see how she fares. Patient denies any diarrhea. Patient denies any chest pain, shortness Brev[place] lightheadedness, dizziness, syncopal, or near syncopal episodes. Review of Systems Review of Systems: A 12 point review of systems was completed patient all pertinent positive and negative per HPI the remainder are unremarkable. Exam Narrative: Constitutional: Patient is a 76-year-old frail female who is in no acute distress. Patient is alert and oriented x3 HEENT: Moist mucous membranes. No scleral icterus. No lymphadenopathy. Neck: No carotid bruits noted no JVD noted Lungs: Lung sounds are clear to auscultation bilaterally. No accessory muscle use. No rhonchi, rales, or wheezes noted. Cardiovascular: Apical pulse is regular rate and rhythm. S1-S2 noted, no S3 or S4 noted. No gallops, murmurs, or rubs noted. Abdomen: Mildly distended/round and nontender. No palpable masses. Extremities: No edema. Nontender. Skin: No rashes or lesions. Warm and dry. Skin is intact. Neurological: No focal neurological deficits. Cranial nerves II-XII grossly intact. Psychiatric: Cooperative, appropriate mood, and affect Objective Data Vital Signs Vital Signs: Vital Signs - 24 hr 08/16/21 21:36 08/16/21 21:46 08/16/21 23:13 Temperature 36.6 C 36.6 C 36.4 C Pulse Rate 106 H 106 H 92 Respiratory Rate 16 16 16 Blood Pressure 120/88 120/88 124/57 L Pulse Oximetry 96 96 94 08/16/21 23:57 08/17/21 03:03 Temperature 36.5 C 36.6 C Pulse Rate 94 89 Respiratory Rate 18 20 Blood Pressure 120/80 106/72 Pulse Oximetry 93 92 Intake/Output Intake/Output: Intake & Output 08/14/21 08/15/21 08/16/21 08/17/21 23:59 23:59 23:59 23:59 Intake Total 1250 Output Total 300 Balance 950 Meds/Results Medications: Active Medications Generic Name Dose Route Start Last Admin Trade Name Freq PRN Reason Stop Dose Admin Acetaminophen 650 mg 08/17/21 04:10 Acetaminophen 325 Mg Tablet PO Q4H PRN Pain 1-3 Aspirin 81 mg 08/17/21 09:00 08/17/21 09:38 Aspirin 81 Mg Enteric Tablet PO 09/16/21 08:59 81 mg DAILY DORINA Administration Bisacodyl 10 mg 08/17/21 04:10 Bisacodyl 10 Mg Suppository RECTAL DAILY PRN Constipation Buspirone HCl 5 mg 08/17/21 09:00 08/17/21 09:40 Buspirone Hcl 5 Mg Tablet PO 5 mg TID DORINA Administration B
[2021-08-17 12:14] VITALS: BP 106/85; PULSE 103; RESP 16; TEMP 36.4; O2SAT 94
[2021-08-17] MEDS: POTASSIUM CHLORIDE 20 MEQ PACKET (FOR LIQUID) PO (12:20)
[2021-08-17] MEDS: ONDANSETRON HCL ODT 4 MG TABLET PO (19:51)
[2021-08-17] MEDS: LORazepam (*CRX) 0.5 MG TABLET PO (19:52)
[2021-08-17 20:13] VITALS: BP 111/76; PULSE 92; RESP 16; TEMP 36.8; O2SAT 97
[2021-08-17] MEDS: traZODone HCL 50 MG TABLET PO (21:27)
[2021-08-17] MEDS: MONTELUKAST SODIUM 10 MG TABLET PO (21:27)
[2021-08-17] MEDS: MORPHINE SULFATE (*CRX) 15 MG TABCR PO (21:27)
[2021-08-18 05:28] LABS: Basophils Percent Auto 0.1 % (0.2-1.2); Eosinophils Percent Auto 0.2 % (0-4.4); Hematocrit 36.1 % (37.0-47.0); Hemoglobin 11.8 g/dL (12.0-15.0); Immature Granulocyte Absolute 0.04 K/mm3 (0.00-0.031); Immature Granulocyte Percent A 0.5 % (0-0.5); Lymphocytes Absolute Auto 1.75 K/mm3 (0.9-3.2); Lymphocytes Percent Auto 20.1 % (18.3-44.2); Mean Corpuscular HGB Conc 32.7 g/dl (32-36); Mean Corpuscular Hemoglobin 34.2 pg (26-34); Mean Corpuscular Volume 104.6 fl (80-100); Mean Platelet Volume 10.6 fl (7.4-10.4); Neutrophils Absolute Auto 5.9 K/mm3 (1.3-6.7); Neutrophils Percent Auto 68.1 % (45.5-73.1); Platelet Count Result 165 k/mm3 (150-375); Red Blood Count 3.45 M/mm3 (4.2-5.4); White Blood Count 8.7 K/mm3 (4.5-10.0)
[2021-08-18 05:33] LABS: Alanine Aminotransferase 23 U/L (4-35); Albumin Level 2.8 g/dL (3.5-5.1); Alkaline Phosphatase 256 U/L (38-126); Anion Gap 3 mmol/L (8-16); Aspartate Amino Transferase 67 U/L (14-36); Bilirubin,Total 3.5 mg/dL (0.2-1.3); Blood Urea Nitrogen 14 mg/dL (7-17); Calcium 8.1 mg/dL (8.4-10.2); Carbon Dioxide 38 mmol/L (22-30); Chloride 93 mmol/L (98-107); Estimated CRCL calculation 38 ml/min; Estimated Glomerular Filt Rate > 60; Glucose 102 mg/dL (65-110); Sodium 134 mmol/L (137-145)
[2021-08-18 06:00] VITALS: BP 97/73; PULSE 74; RESP 18; TEMP 37.1; O2SAT 92
[2021-08-18] MEDS: prednisoLONE ACETATE 1% OPHTH 5 ML 1 DROP LEFT EYE (08:55)
[2021-08-18] MEDS: LACTULOSE 20 GM/30 ML UDC PO (08:55)
[2021-08-18] MEDS: DORZOLAMIDE HCL 2% OPHTH DROPS 1 DROP EACH EYE (08:55)
[2021-08-18] MEDS: POTASSIUM CHLORIDE 20 MEQ PACKET (FOR LIQUID) 40 MEQ PO (08:56)
[2021-08-18] MEDS: POTASSIUM CHLORIDE 20 MEQ PACKET (FOR LIQUID) PO (08:56)
[2021-08-18] MEDS: PROCHLORPERAZINE MALEATE 5 MG TABLET 10 MG PO (08:57)
[2021-08-18] MEDS: THIAMINE HCL 100 MG TABLET PO (08:57)
[2021-08-18] MEDS: DAPSONE 25 MG TABLET 100 MG PO (08:57)
[2021-08-18] MEDS: predniSONE 10 MG TABLET 30 MG PO (08:58)
[2021-08-18] MEDS: SPIRONOLACTONE 50 MG TABLET 100 MG PO (08:58)
[2021-08-18] MEDS: busPIRone HCL 10 MG TABLET PO (08:58)
[2021-08-18] MEDS: ASPIRIN 81 MG ENTERIC TABLET PO (08:58)
[2021-08-18] MEDS: busPIRone HCL 5 MG TABLET PO (08:58)
[2021-08-18] MEDS: FUROSEMIDE 40 MG TABLET PO (08:59)
[2021-08-18] MEDS: SERTRALINE HCL 50 MG TABLET PO (08:59)
[2021-08-18] MEDS: DULoxetine HCL 60 MG CAPSULE.DR PO (08:59)
[2021-08-18] MEDS: PANTOPRAZOLE 40 MG TABLET PO (08:59)
--- NOTE | 2021-08-18 09:27 | PM.DS ---
DS: Admitting Diagnosis Discharge Date 08/18/2021 Admitting Diagnosis 1) Late Stage Terminal Illness 2) End-stage liver disease 3) Intractable Nausea and Vomiting DS: Discharge Diagnosis Discharge Diagnosis (1) Terminal illness, late stage: Code(s): R69 - Illness, unspecified Status: Acute Assessment and Plan: Patient has been on hospice for several months. Once patient has been discharged can be admitted to hospice for her liver failure. - Able to resume hospice care today at discharge. (2) End-stage liver disease: Code(s): K72.10 - Chronic hepatic failure without coma Status: Acute Assessment and Plan: Patient is at baseline no need for any further treatment for her liver failure. - Discharging to home today. (3) Intractable nausea and vomiting: Code(s): R11.2 - Nausea with vomiting, unspecified Status: Acute Assessment and Plan: Likely secondary to terminal illness of liver disease. Patient states she made it to the evening without any nausea or vomiting. Patient states she tolerated a popsicle and clear liquids this morning. Will advance her to full liquid diet if she continues to do well consider discharge tomorrow morning. - No additional N/V overnight. She is stable for discharge today. (4) Hypokalemia: Code(s): E87.6 - Hypokalemia Status: Acute Assessment and Plan: Will supplement potassium and continue monitor patient's potassium levels. Laboratories have been ordered for the a.m.. - Potassium of 3.0 this AM, 60 mEq po given. Pt. asymptomatic and still stable for discharge and resumption of Hospice care. DS: Summary Hospital Course Reason for hospitalization: Intractable Nausea and Vomiting Hospital Course: This very pleasant 76 year old female patient with significant PMH of End stage liver disease on hospice, chronic Hepatitis B, ascites and liver encephalopathy, was admitted to the hospital for her intractable N/V and fatigue. Her appetite has decreased and she had not been able to care for herself for several days prior to presentation due to her N/V and abdominal pain which is thought to be a sequelae of her current liver disease. She was admitted so that she could receive IV Hydration and anti-emetics as needed. Her potassium has been low during the admission, but stable, and pt. is asymptomatic of any low potassium. It was 3.0 this AM. She was given 60 mEq po and after discussing with the patient, she voices that she wants to go home. This is an agreeable plan at this time as we are not treating her liver disease and she will resume hospice treatment instead. Status at Discharge Functional status at discharge: independent ambulation Overall status at discharge: patient is back to baseline Time Spent with Patient Time attestation: Total time spent providing and/or coordinating discharge services: Time spent: Greater than 30 minutes Exam Narrative: Constitutional: Patient is a 76-year-old frail female who is in no acute distress. Patient is alert and oriented x3 HEENT: Moist mucous membranes. No scleral icterus. No lymphadenopathy. Neck: No carotid bruits noted no JVD noted Lungs: Lung sounds are clear to auscultation bilaterally. No accessory muscle use. No rhonchi, rales, or wheezes noted. Cardiovascular: Apical pulse is regular rate and rhythm. S1-S2 noted, no S3 or S4 noted. No gallops, murmurs, or rubs noted. Abdomen: Mildly distended/round and nontender. No palpable masses. Extremities: No edema. Nontender. Skin: No rashes or lesions. Warm and dry. Skin is intact. Neurological: No focal neurological deficits. Cranial nerves II-XII grossly intact. Psychiatric: Cooperative, appropriate mood, and affect DS: Data Data Completed and Pending Labs on day of discharge: Labs from last 24 hours 08/18/21 08/18/21 04:45 04:45 WBC 8.7 RBC 3.45 L Hgb 11.8 L D Hct 36.1 L MCV 104.6 H MCH 34.2 H MCH
== END 2021-08-18 11:26 | disposition hospice, home (50) ==
LOC: ANHED 22:47 → ANH2MED 22:51
PROVIDERS: Nurse Practitioner Adult Health; Admitting Provider Internal Medicine; Emergency Provider Nurse Practitioner Family; PCP Internal Medicine; Visit Provider Nurse Practitioner Adult Health
DX: K72.10 Chronic hepatic failure without coma (principal); Z51.5 Encounter for palliative care; R11.2 Nausea with vomiting, unspecified; E87.6 Hypokalemia; Z79.899 Other long term (current) drug therapy
CPT/HCPCS: 36415; 80053; 81001; 82140; 83605; 85025; 87077; 87086; 87186; 93005; 96361; 96374; 96375; 99285; A9270; G0378; J1200; J2270; J2765; J7030; J7512